=== PATIENT | female | born 1960 | race Caucasian/White ===

== ENCOUNTER → 2023-06-17 13:56 | Outpatient (REF) | payer MEDICARE, OTHER, SELFPAY | LOC: HWRAD 13:56 | PROVIDERS: ATTENDING PHYSICIAN Family Medicine Sports Medicine | DX: K57.92 Diverticulitis of intestine, part unspecified, without perforation or abscess without bleeding (principal) | CPT/HCPCS: 74177; Q9967 ==

== ENCOUNTER → 2024-03-24 07:13 | Outpatient (REF) | payer MEDICARE, OTHER, SELFPAY ==
[2024-03-24] MEDS: LEXISCAN 0.4 MG IV ×2 (09:21)
[2024-03-24] MEDS: FLUSH (NSS) 1 FLUSH IV ×2 (09:22)
== END ==
LOC: RCS 07:13
PROVIDERS: ATTENDING PHYSICIAN Family Medicine Sports Medicine
DX: R07.9 Chest pain, unspecified (principal)
CPT/HCPCS: 78452; 93017; A9500; J2785

== ENCOUNTER 2024-07-29 20:11 | Inpatient (IN) | payer MEDICARE, OTHER, SELFPAY ==
[2024-07-29 15:07] VITALS: BP 174/89
[2024-07-29 15:48] LABS: COVID-19 Antigen Negative (Negative)
[2024-07-29 15:52] LABS: % Basophils 0.6 % (0-2); % Eosinophils 1.1 % (0-6); % Immature Granulocytes 0.3 % (0-0.5); % Lymphocytes 13.5 % (20.5-51.1); % Monocytes 6.6 % (1.7-9.3); % Neutrophils 77.9 % (42.2-75.2); Absolute Basophils 0.1 10^3/uL (0-0.2); Absolute Eosinophils 0.1 10^3/uL (0-0.7); Absolute Lymphocytes 1.5 10^3/uL (1.2-3.4); Absolute Monocytes 0.7 10^3/uL (0.1-0.6); Absolute Neutrophils 8.5 10^3/uL (1.4-6.5); Hematocrit 35.1 % (37.0-47.0); Hemoglobin 11.1 g/dL (12.0-16.0); Mean Corp Hgb Conc. 31.6 g/dL (33.0-37.0); Mean Corpuscular Hgb 26.6 pg (27.0-31.0); Mean Corpuscular Volume 84.2 fL (81.0-99.0); Mean Platelet Volume 10.5 fL (7.4-10.4); Nucleated Red Blood Cells % 0 %; Platelet Count 202 10^3/uL (130-400); Red Blood Cell Count 4.17 10^6/uL (4.20-5.40); Red Cell Dist. Width 15.9 % (11.5-14.5); White Blood Cell Count 10.9 10^3/uL (4.8-10.8)
[2024-07-29 15:53] LABS: NT-proBNP 1930 pg/ml
[2024-07-29 15:58] LABS: ALT (SGPT) 24 U/L (0-35); AST (SGOT) 37 U/L (14-36); Albumin 4.1 g/dl (3.5-5.0); Alkaline Phosphatase 83 U/L (38-126); Blood Urea Nitrogen 11 mg/dl (7-17); Calcium 9.2 mg/dl (8.4-10.2); Carbon Dioxide 22 mmol/L (22-30); Chloride 111 mmol/L (98-107); Glucose 155 mg/dl (70-99); Potassium 4.2 mmol/L (3.5-5.1); Sodium 143 mmol/L (135-145); Total Bilirubin 0.8 mg/dl (0.2-1.3); Total Protein 6.4 g/dl (6.3-8.2); eGFR > 60.00
[2024-07-29 16:00] VITALS: BP 139/111
[2024-07-29 16:12] VITALS: BMI 32.5
--- NOTE | 2024-07-29 16:17 | ED.GENMED ---
History of Present Illness
General
Chief Complaint: Breathing Problem
Source: patient
Exam Limitations: none
Time Seen by Provider: 07/29/24 16:08
Nursing documentation reviewed up to this point in time: agreed with
History of Present Illness
History of Present Illness:
Patient is a 64-year-old female with past medical history of COPD, lupus scleroderma Sjogren's presents to the ER for evaluation. Patient reports she has been short of breath for at least the past month. She was followed by her family doctor for
this and July 02 she completed antibiotics, Cipro and steroids. She reports she really never improved however recently got worse. She reports last night she was up all night till 3:30 in the morning with shortness of breath. She tried to use
family members nebulizer which did seem to improve her symptoms. She does report that when she saw her family doctor recently for this he did want a CAT scan she never had that done yet.
She has had some runny nose denies any fevers.
Past History
Past History
ED Past Medical History: GERD, Hypothyroidism, Psychiatric (Anxiety), Other (Rheumatoid arthritis, Sj�gren syndrome, lupus) and Other (Irritable bowel syndrome, diverticulosis, neuropathy); Negative CAD
ED Past Surgical History: Tonsilectomy
Social History
Tobacco: Smoker
Personal:
Living: with family
Employment: Employed
Family History
Family History: Hypertension; Negative Early CAD
Review of Systems
Review of Systems
Allergies reviewed?: Yes
All Other Systems: ROS reviewed and negative except as documented in HPI and ROS
Constitutional: Denies fever
EENT: Reports runny nose
Respiratory: Reports cough (mild cough ) and trouble breathing
Cardiac: Reports no symptoms
ABD/GI: Reports no symptoms
Musculoskeletal: Reports no symptoms
Skin: Reports no symptoms
Neurological: Reports no symptoms
Psychiatric: Reports no symptoms
Phy Exam
General Physical Exam
General Presentation: no apparent distress
General age: appears stated age
General Skin: warm and dry
General Habitus: normal
General Mental: alert
General Hydration: appears well hydrated
Cardiovascular Exam
Cardiovascular Exam: regular rate/rhythm, no murmur and normal peripheral pulses
Pulmonary Exam
Pulmonary Exam: other (+ crackles b/l bases )
Neurological Exam
Neurological Exam: alert and oriented x3
Musculoskeletal Exam
Musculoskeletal Exam: full ROM
Skin Exam
Skin Exam: normal color and warm/dry
Psychiatric Exam
Psychiatric Exam: normal mood/affect
Scores
Heart Failure Risk
Heart Failure Risk Score: Not Applicable
Course
Orders/Labs/Results
Orders:
Orders
07/29/24 15:12
ECG [Electrocardiogram (*1)] Urgent
Reason for Study: Shortness of Breath
EKG- Treatment ONCE
07/29/24 15:22
BNP [NT-proBNP] Urgent
COVID-19 Antigen Urgent
Source: Nasal Swab
Complete Blood Count/With Diff Urgent
Comprehensive Metabolic Panel Urgent
07/29/24 15:23
Influenza A+B Rapid Molecular Urgent
ANUSHA Source: Nasal Swab
Specimen Description:
07/29/24 16:29
CT Chest PE Study Urgent
Comment:
Reason For Exam: SOB
07/29/24 16:31
Dexamethasone Sod Phosphate [Decadron] 10 mg IV NOW STA
Ipratropium/Albuterol Sulfate [Duoneb] 3 ml INH R NOW STA
07/29/24 19:03
CefTRIAXone [Rocephin] 1,000 mg IV NOW STA
Doxycycline Hyclate [Vibramycin] 100 mg 0.9% Sodium Chloride 250 ml [Nss] 250 ml IV NOW
Abnormal Lab Results
07/29/24
15:22
WBC 10.9 H 10^3/uL
(4.8-10.8)
RBC 4.17 L 10^6/uL
(4.20-5.40)
Hgb 11.1 L g/dL
(12.0-16.0)
Hct 35.1 L %
(37.0-47.0)
MCH 26.6 L pg
(27.0-31.0)
MCHC 31.6 L g/dL
(33.0-37.0)
RDW 15.9 H %
(11.5-14.5)
MPV 10.5 H fL
(7.4-10.4)
Absolute Neuts (auto) 8.5 H 10^3/uL
(1.4-6.5)
Absolute Monos (auto) 0.7 H 10^3/uL
(0.1-0.6)
Neutrophils % 77.9 H %
(42.2-75.2)
Lymphocytes % 13.5 L %
(20.5-51.1)
Chloride 111 H mmol/L
(98-107)
Glucose 155 H mg/dl
(70-99)
AST 37 H U/L
(14-36)
07/29/24 15:22
07/29/24 15:22
Vital Signs
Initial and Last Documented VS:
Initial Vital Signs
Temp Pulse Resp BP Pulse Ox
98.1 F 83 20 174/89 98
07/29/24 15:07 07/29/24 15:07 07/29/24 15:07 07/29/24 15:07 07/29/24 15:07
Last Documented Vital Signs
Temp Pulse Resp BP Pulse Ox
98.1 F 84 21 135/92 93
07/29/24 15:07 07/29/24 18:48 07/29/24 18:48 07/29/24 18:47 07/29/24 18:48
Gym Instructor consulted with Physician
Gym Instructor consulted with physician?: Yes
Name of Physician Consulted: [email or web address]
MDM/Problems Addressed
Differential Diagnosis Includes:
Not limited to COPD exacerbation, pneumonia, less likely COVID or influenza
MDM/Problems Addressed:
Patient is a 64-year-old female past medical history of COPD presents for worsening shortness of breath. Patient denies any recent fever chills has a mild runny nose very minimal cough. Patient presents with crackles to bilateral bases hypoxic
with ambulation patient does dip down to 88% with ambulation this was after patient was given a neb and steroids. Patient had seen her family doctor for further evaluation of her shortness of breath however has never seen pulmonology. She was
ordered a CAT scan but that was never done CAT scan was done here in the ER which is negative for PE does show extensive groundglass opacities likely representing atelectasis or multifocal pneumonia. Patient is afebrile white count minimally
elevated at 10.9, normal electrolytes negative COVID-negative flu. Patient BNP elevated however patient with no history of heart failure no lower extremity swelling on exam. Will plan for admission for hypoxia and will treat for pneumonia.
Chronic conditions affecting care:
copd
*Pulse Oximetry
Patient hypoxic: no
*EKG
Interpreted by ED Provider?: Yes
Heart Rate: 82
Rate: normal
Rhythm: sinus
*Critical Care Note
Total Time (30-74mins, 75-104mins- exclusive of procedures): Not Applicable
ED Attending Note
-
Portions of this chart may have been created with voice recognition software.� Occasional wrong word or��sound alike� substitutions may have occurred due to the inherent limitations of voice recognition software.
Discharge Plan
Departure
Patient Disposition: Admit
Date of Disposition: 07/29/24
Time of Disposition: 19:07
Admit to: Med/Surg
Admit to doctor: hospitalist
Presentation/result/management discussed w/ accepting MD/DO: Hospitalist
Patient with high blood pressure during this ER visit?: Yes
Condition: Fair
Covid-19: Not Applicable
Discharge Problem:
copd exacerbation, Pneumonia
Prescriptions:
No Action
levothyroxine 100 MCG tablet
100 mcg PO DAILY Qty: 30 0RF
Referrals:
Jeferson Torres DO [Family Provider] -
Interventions
Interventions:
*General Assessment Last Done: 07/29/24 15:07
ED- Cardiac Assessment Last Done: 07/29/24 16:13
ED- Pulmonary Assessment Last Done: 07/29/24 16:13
Discharge Date and Time
Print Language: TURKMEN
[2024-07-29 17:00] VITALS: BP 152/71
[2024-07-29] MEDS: DUONEB 3 ML INH (17:23)
[2024-07-29] MEDS: DECADRON 10 MG IV (17:23)
[2024-07-29 18:47] VITALS: BP 135/92
--- NOTE | 2024-07-29 19:49 | W.PN.UPDATE ---
Update Note
Progress Note Update
This note serves as an addendum to the H&P by cost report clerk HEIDI Soumya ROSALES
HPI
64F Former smoker HX COPD, HX lupus scleroderma Sjogren's, not on home O2 seen at ER
- reports short of breath
- seen by PCP completed ABx Cipro and steroids
- Never really improved recently got worse.
- last night she was up all night till 3:30 in the morning with shortness of breath.
- use family members nebulizer which did seem to improve her symptoms.
Vital Signs
Temp Pulse Resp BP Pulse Ox
98.1 F 84 21 135/92 93
07/29/24 15:07 07/29/24 18:48 07/29/24 18:48 07/29/24 18:47 07/29/24 18:48
Labs
PE
Gen: not toxic , NAD
HEENT: anicteric
Neck: supple
Lungs:+ crackles b/l bases )
Cor: RRR S1 S2
Abdomen: soft abdomen
MANUFACTURING ENGINEER PAINT: AAO3 NFND
MS: no edema
Psych: nl mood and affect
07/29/24
15:22
WBC 10.9 H
Hgb 11.1 L
Plt Count 202
Creatinine 0.8
eGFR > 60.00
Pcm-M-Cfbeorpkwbi Pept 1930
Chest PE Study
1. No evidence of central, lobar or segmental pulmonary embolism.
2. There is extensive groundglass opacities with consolidative opacities in the posterior right upper lobe and bilateral lower lobes. Findings may represent edema/atelectasis or multifocal pneumonia.
3. 1.7 cm right hilar lymph node which may be reactive. Consider follow-up to ensure resolution.
ASSESSMENT & PLAN
Dyspnea but no signifcant hypoxia nor O2 need
Abn CTC for extensive groundglass opacities with consolidative opacities and NEG for PE
DDX: Pul edema/atelectasis vs multifocal PNA - NI infection vs Cryptogenic organizing PNA ??
- check PCT
- ECHO in AM
- Trial of IV Lasix 40mg single dose
- Empiric Duo Nebs qid and PRN
- Hold of IV Decadron
- Hold off ABx for now
- PRN O2 if POx > 93 %
- Pul consult
Essential HTN
- c/w WEB SITE ADMIN Nebivolol, Valsartan
HX lupus scleroderma Sjogren's
-,c/w Hydroxychloroquine and Folic acid
HLD
- WEB SITE ADMIN Rosuvastatin
- on ASA
Depression
- Sertraline
DVT Px: LMWH
Full code
IP TLM
--- NOTE | 2024-07-29 19:56 | HPS.HSE ---
Family Physician
-
Family Physician: Jeferson Torres
Chief Complaint
-
Shortness of Breath
History of Present Illness
Patient is a 64 y/o female past medical history of multiple rheumatologic conditions, hypertension, hyperlipidemia and COPD who presents with increased shortness of breath. Patient reports she has been short of breath with activity for an extended
period of time. She notes worsening symptoms over the past month but today had a very severe episode of shortness of breath after walking up the stairs which prompted her to come to the emergency department for evaluation. She reports mild cough
which she describes more as a post-nasal drip than from her lungs. She reports chest tightness across the chest, and back along the bra line. She reports occasionally swelling of her hands and ankles. She denies fevers, sweats or chills.
Medical History
Past Medical History
Past Medical History: Reports Other
Additional Past Medical History:
Lupus
Scleroderma
Sjogren Syndrome
Arthritis
GERD / PUD
Essential Hypertension
Hyperlipidemia
Hypothyroidism
Overactive Bladder
Past Surgical History: Reports Other
Additional Past Surgical History:
Benign Parotid Tumor
Cervical Fusion
Social History
Tobacco: Former Smoker (Quit a little over 15 years ago)
Alcohol: Occasional
Family History
Family History: Not pertinent
Allergies / Home Medications
Allergies reflects when Allergies were last updated in [facility].
Home Medications with original date entered in [facility]
Allergy/Medication List:
Allergies
Allergy/AdvReac Type Severity Reaction Status Date / Time
erythromycin base Allergy Intermediate Rash Verified 07/29/24 15:07
[Erythromycin Base]
Home Medications
levothyroxine 100 mcg tablet 100 mcg PO DAILY #30 tabs 02/02/11
acetaminophen 500 mg tablet (Tylenol Extra Strength) 1,000 mg PO BIDPRN PRN mild pain 07/29/24
aspirin 81 mg tablet,delayed release 81 mg PO DAILY 07/29/24
celecoxib 200 mg capsule 200 mg PO BID 07/29/24
chlorzoxazone 500 mg tablet 500 mg PO DAILY 07/29/24
dextromethorphan-guaifenesin 30 mg-600 mg tablet extended [id number] hr (Mucinex DM) 2 tab PO [id number] PRN mucus 07/29/24
folic acid 0.8 mg capsule 0.8 mg PO DAILY 07/29/24
hydroxychloroquine 200 mg tablet 200 mg PO DAILY 07/29/24
loratadine 10 mg tablet 10 mg PO DAILYPRN PRN seasonal allergies 07/29/24
montelukast 10 mg tablet 10 mg PO DAILY 07/29/24
nebivolol 10 mg tablet 10 mg PO DAILY 07/29/24
omeprazole 40 mg capsule,delayed release 40 mg PO DAILY 07/29/24
pseudoephedrine HCl 30 mg tablet (Sudafed) 30 mg PO DAILYPRN PRN mucus 07/29/24
rosuvastatin 5 mg tablet 5 mg PO DAILY 07/29/24
sertraline 100 mg tablet 100 mg PO DAILY 07/29/24
tolterodine 4 mg capsule,extended release 24 hr 4 mg PO DAILY 07/29/24
valsartan 320 mg tablet 160 mg PO DAILY 07/29/24
vitamin B complex 1 tab PO DAILY 07/29/24
Review of Systems
-
A 12 point ROS was completed and negative except as noted: Yes
Constitutional: Denies Fever or Chills
Respiratory: Reports See HPI
Cardiac: Denies Palpitations
Physical Exam
Vital Signs
Vital Signs
Temp Pulse Resp BP Pulse Ox
98.1 F 78 25 135/92 91
07/29/24 15:07 07/29/24 19:45 07/29/24 19:45 07/29/24 18:47 07/29/24 19:45
Physical Exam
General: Comfortable and Conversant
HEENT: Anicteric and Moist mucous membranes
Respiratory: Rales (Fine rales bilaterally) and Non Labored Respirations; No Wheezes
Cardiac: S1/S2 and Regular Rhythm
GI: Soft and Non Tender
Rectal: Deferred by Provider
Musculoskeletal: No Clubbing, No Cyanosis and Other (Slight edema of bilateral hands)
Skin: Warm and Dry
Neuro: Awake, Alert, Oriented and Nonfocal/grossly intact
Psych: Calm
Laboratory Results
-
07/29/24 15:22
07/29/24 15:22
Laboratory Results
Total Bilirubin 0.8 mg/dl (0.2-1.3) 07/29/24 15:22
AST 37 U/L (14-36) H 07/29/24 15:22
ALT 24 U/L (0-35) 07/29/24 15:22
Alkaline Phosphatase 83 U/L (38-126) 07/29/24 15:[address]:
1. No evidence of central, lobar or segmental pulmonary embolism.
2. There is extensive groundglass opacities with consolidative opacities in the posterior right upper lobe and bilateral lower lobes. Findings may represent edema/atelectasis or multifocal pneumonia.
Data Reviewed
-
CT Scan: Report Reviewed by me
Lab Data: Labs Reviewed by me
Impression/Plan
-
Dyspnea on Exertion, differential includes pulmonary fibrosis / interstitial lung disease vs heart failure vs other
-Consult Pulmonary
-Continue DuoNeb QID and PRN
-Patient given Decadron 10mg in ED - will hold on further steroids
-Check Procalcitonin - If negative hold on further antibiotics
-Check Echo
-Give Lasix 40mg IV x One Dose - Monitor for response
Essential Hypertension
-Continue nebivolol and valsartan
Hyperlipidemia
-Continue rosuvastatin
Lupus / Scleroderma / Sjogren / Arthritis
-Continue Celebrex
-Continue hydroxychloroquine
Hypothyroidism
-Continue levothyroxine
GERD
-Continue Protonix
Overactive Bladder
-Continue Detrol
DVT proph: Lovenox
Code Status: Full Code
[2024-07-29] MEDS: ROCEPHIN 1000 MG IV (20:22)
[2024-07-29] MEDS: LASIX 40 MG IV (20:22)
[2024-07-29] MEDS: VIBRAMYCIN 260 MG IV (20:44)
[2024-07-29 21:05] LABS: Procalcitonin 0.11 ng/ml (0.0-0.25)
[2024-07-29 21:58] VITALS: BP 172/94; BMI 32.6
[2024-07-29] MEDS: DIOVAN 160 MG PO (22:38)
[2024-07-29 23:20] VITALS: BP 174/86
[2024-07-29] MEDS: DUONEB INH (23:45)
[2024-07-29] MEDS: PULMICORT INH (23:45)
[2024-07-30 03:08] VITALS: BP 172/93
[2024-07-30] MEDS: SYNTHROID 100 MCG PO (05:03)
[2024-07-30 05:43] VITALS: BMI 31.9
[2024-07-30 06:27] LABS: Hematocrit 36.8 % (37.0-47.0); Hemoglobin 11.8 g/dL (12.0-16.0); Mean Corp Hgb Conc. 32.1 g/dL (33.0-37.0); Mean Corpuscular Hgb 26.8 pg (27.0-31.0); Mean Corpuscular Volume 83.6 fL (81.0-99.0); Mean Platelet Volume 11.3 fL (7.4-10.4); Platelet Count 182 10^3/uL (130-400)
[2024-07-30 06:39] LABS: Blood Urea Nitrogen 16 mg/dl (7-17); Calcium 10.3 mg/dl (8.4-10.2); Carbon Dioxide 24 mmol/L (22-30); Chloride 106 mmol/L (98-107); Estimated Creatinine Clearance 65 ml/min; Glucose 145 mg/dl (70-99); Magnesium 1.9 mg/dl (1.6-2.3); Potassium 4.6 mmol/L (3.5-5.1); Sodium 142 mmol/L (135-145); eGFR > 60.00
--- NOTE | 2024-07-30 06:47 | W.PN.HOSP.TC ---
Today's Communication/Plan
-
see a/p
Assessment / Plan
Assessment / Plan
Physical Exam
General: Comfortable and Conversant
HEENT: Anicteric and Moist mucous membranes
Respiratory: Clear to auscultation b/l, Non Labored Respirations; No Wheezes
Cardiac: S1/S2 and Regular Rhythm
GI: Soft and Non Tender
Musculoskeletal: No Clubbing, No Cyanosis, no edema
Skin: Warm and Dry
Neuro: AOx3 conversant coherent
Psych: Calm
64F Lupus Scleroderma Sjogren HTN HLD COPD p/w exertional dyspnea progressive past few weeks.
Dyspnea on Exertion, differential includes pulmonary fibrosis / interstitial lung disease vs heart failure vs other
-Consult Pulmonary
-Continue DuoNeb QID and PRN
-Patient given Decadron 10mg in ED - holding further steroids at this time
-Procal neg monitor off abx
-ECHO appreciated EF 75% stage II diastolic dysfunction no significant valve abn's
-received Lasix 40mg IV x One Dose - with significant weight loss noted
-BNP 1930
-patient since significantly symptomatically improved.
-Daily Weight I/O
-Home oxygen assessment appreciated no needs
Essential Hypertension
-Continue nebivolol and valsartan
Hyperlipidemia
-Continue rosuvastatin
Lupus / Scleroderma / Sjogren / Arthritis
-Continue Celebrex
-Continue hydroxychloroquine
Hypothyroidism
-Continue levothyroxine
GERD
-Continue Protonix
Overactive Bladder
-Continue Detrol
PT/OT eval pending
DVT proph: Lovenox
Code Status: Full Code
I spent a total of 50 minutes with the patient or on the floor. More than 50% of this time involved counseling and coordination of care.
Anticipated Discharge: 24 - 48 hours
Subjective/Interval History
-
Date of Service: July 30, 2024
No acute distress appears comfortable. Reports significant improvement in symptoms. Stable respiratory status on room air.
Objective Data
-
Labs:
Laboratory Results
07/30/24
05:24
WBC 9.0
Hgb 11.8 L
Hct 36.8 L
Plt Count 182
Sodium 142
Potassium 4.6
Chloride 106
Carbon Dioxide 24
BUN 16
Creatinine 0.8
Glucose 145 H
Calcium 10.3 H
Vital Signs:
Vital Signs
Temp Pulse Resp BP Pulse Ox
98.2 F 74 16 172/93 94
07/30/24 03:08 07/30/24 03:08 07/30/24 03:08 07/30/24 03:08 07/30/24 03:08
[2024-07-30] MEDS: DUONEB 3 ML INH ×4 (07:16→19:21)
[2024-07-30] MEDS: PULMICORT 0.5 MG INH ×2 (07:17→19:21)
[2024-07-30 07:25] VITALS: BP 161/79
[2024-07-30] MEDS: PROTONIX 40 MG PO (08:31)
[2024-07-30] MEDS: DETROL LA 4 MG PO (08:31)
[2024-07-30] MEDS: BYSTOLIC 10 MG PO (08:31)
[2024-07-30] MEDS: DIOVAN 160 MG PO (08:31)
[2024-07-30] MEDS: FOLVITE 0.8 MG PO (08:31)
[2024-07-30] MEDS: SINGULAIR 10 MG PO (08:31)
[2024-07-30] MEDS: CELEBREX 200 MG PO ×2 (08:31→19:35)
[2024-07-30] MEDS: CRESTOR 5 MG PO (08:31)
[2024-07-30] MEDS: PLAQUENIL 200 MG PO (08:31)
[2024-07-30] MEDS: ASPIR LOW (ENTERIC COATED) 81 MG PO (08:32)
[2024-07-30] MEDS: ZOLOFT 100 MG PO (08:32)
[2024-07-30 11:17] VITALS: BP 167/87
--- NOTE | 2024-07-30 11:25 | CON.PUL ---
Consultation
Consultation Request
Date/Time Consultation Requested: 07/30
Date/Time Consultation Performed: 07/30
Reason for Consultation: Shortness of breath
Medical History
-
History of Present Illness:
64-year-old female with history of asthma, COPD, scleroderma/Sjogren's with acute on chronic shortness of breath. Patient states she has been short of breath for years but more short of breath over the last 2 months. She was given course of
antibiotics and steroids about 1 month ago, without significant improvement. Her has been trying to get her to be evaluated in the hospital. She finally decided to present to the ER where upon arrival, afebrile, pulse 83, breathing at 20,
pressure 174/89, 98%. She was noted to have 88% saturation with activity, also noted to have crackles at the base in the ED. Viral studies negative, elevated proBNP noted. Patient was admitted for possible pneumonia. We are asked to comment on
her pulmonary process
Presently she states she is feeling much improved. She is presently on room air. At baseline she is able to ambulate but does not do any regular exercise. She denies any falls, syncope, lightheadedness, hemoptysis, dysphagia, choking, nausea.
There is a history of snoring and at 1 point she was told to get tested for sleep apnea but never did
.
PMH: Asthma/COPD, history of lupus/scleroderma/Sjogren's, details unclear. History of GERD/peptic ulcer disease, hypertension, hyperlipidemia, hypothyroidism. History of parotid tumor removal cervical fusion surgery.
Past Medical History
Past Medical History: None (See above)
Past Surgical History: None (See above)
Social History
Tobacco: Former Smoker (Overall, 15+ pack year history of tobacco use, 10-yr use of electronic cigarette, recently quit)
Alcohol: Occasional
Drug: None
Personal:
Living: With Family
Employment: Retired (Retired nurse)
Family History
Family History: Other (Family history negative for blood clots, lung cancer, lung disease.)
Allergies / Home Medications
Allergies
Allergy/AdvReac Type Severity Reaction Status Date / Time
erythromycin base Allergy Intermediate Rash Verified 07/29/24 15:07
[Erythromycin Base]
Home Medications
�Medication �Instructions �Recorded �Confirmed �Last Taken �Type
levothyroxine 100 mcg tablet 100 mcg PO DAILY #30 tabs 02/02/11 07/29/24 Unknown Rx
acetaminophen 500 mg tablet 1,000 mg PO BIDPRN PRN mild pain 07/29/24 07/29/24 Unknown History
(Tylenol Extra Strength)
aspirin 81 mg tablet,delayed 81 mg PO DAILY Blood Clot 07/29/24 07/29/24 Unknown History
release Prevention/Tx
celecoxib 200 mg capsule 200 mg PO BID 07/29/24 07/29/24 Unknown History
chlorzoxazone 500 mg tablet 500 mg PO DAILY 07/29/24 07/29/24 Unknown History
dextromethorphan-guaifenesin 30 2 tab PO [id number] PRN mucus 07/29/24 07/29/24 Unknown History
mg-600 mg tablet extended
[id number] hr (Mucinex DM)
folic acid 0.8 mg capsule 0.8 mg PO DAILY Supplement 07/29/24 07/29/24 Unknown History
hydroxychloroquine 200 mg tablet 200 mg PO DAILY LUPUS 07/29/24 07/29/24 Unknown History
loratadine 10 mg tablet 10 mg PO DAILYPRN PRN seasonal 07/29/24 07/29/24 Unknown History
allergies
montelukast 10 mg tablet 10 mg PO DAILY Allergies 07/29/24 07/29/24 Unknown History
nebivolol 10 mg tablet 10 mg PO DAILY Blood Pressure 07/29/24 07/29/24 Unknown History
omeprazole 40 mg capsule,delayed 40 mg PO DAILY Gastrointestinal 07/29/24 07/29/24 Unknown History
release Issue
pseudoephedrine HCl 30 mg tablet 30 mg PO DAILYPRN PRN mucus 07/29/24 07/29/24 Unknown History
(Sudafed)
rosuvastatin 5 mg tablet 5 mg PO DAILY High Cholesterol 07/29/24 07/29/24 Unknown History
sertraline 100 mg tablet 100 mg PO DAILY 07/29/24 07/29/24 Unknown History
tolterodine 4 mg capsule,extended 4 mg PO DAILY BLADDER 07/29/24 07/29/24 Unknown History
release 24 hr
valsartan 320 mg tablet 160 mg PO DAILY 07/29/24 07/29/24 Unknown History
vitamin B complex 1 tab PO DAILY Supplement 07/29/24 07/29/24 Unknown History
Review of Systems
-
All other systems: Negative unless noted
Vitals / Labs / Diagnostic Testing
Vital Signs
Temp Pulse Resp BP Pulse Ox
98.1 F 76 18 167/87 100
07/30/24 11:17 07/30/24 11:17 07/30/24 11:17 07/30/24 11:17 07/30/24 11:17
Lab Data
07/30/24 05:24
07/30/24 05:24
Microbiology
07/29/24 15:23 Nasal Swab Influenza Types A & B (AMANDA) - Final
Negative for Influenza A & B, NAAT
Negative results must be combined with clinical observations
and patient history.
Nucleic Acid Amplification test (NAAT)performed on the
[employer] platform.
Diagnostic Testing:
Physical Exam
-
HEENT: Normocephalic
Cardiovascular: S1/S2, Regular Rhythm, Murmur (n), Rub (n) and Peripheral Edema (n)
Respiratory: Wheeze (n), Rales (n), Rhonchi (n) and Non-Labored Respirations
GI: Soft, Non Distended (Obese) and Non Tender
Neurology: Awake, Alert and No Motor Deficits (Able to sit up without assistance)
Skin: Other (No clubbing, no cyanosis)
General: Comfortable
Assessment
-
64-year-old female with 15+ pack year history of smoking, electronic cigarette use recently discontinued, 2 months of shortness of breath and cough, worsened over the past 2 weeks found to have bilateral interstitial changes on imaging. We are
asked to comment on her pulmonary process
Acute respiratory insufficiency
Progressive times few weeks
Crackles on exam
Bilateral interstitial changes, diffuse groundglass abnormality
Small pleural effusions
Mild subpleural interstitial changes per abdominal imaging 2023, my review
Abnormal EKG
Indeterminant stress test March 2024
Mild hypercalcemia
Hyperglycemia
Conditions present prior to admission
hypothyroidism
History of lupus/scleroderma/Sjogren's
On hydroxychloroquine
Details unclear
Suspected sleep apnea
15+ pack-year history of smoking, discontinued
Plan/recommendations
At this time, patient states she feels much improved
Influenza study negative
Bilateral groundglass abnormalities, diffuse
Patient denies any occupational or environmental exposures, states she is quit smoking and electronic cigarette use many years ago
Describes symptoms over the last 2 months
Denies any recent history of Covid but denies any frequent testing
She received 1 dose of IV Decadron in the ER, and antibiotics at that time
Moving forward
Given chronicity of symptoms, doubt acute infectious process
Agree with holding antibiotics for now
Patient states she subjectively is improved since admission
Has only received steroids and 1 dose of antibiotics
Check bedside spirometry
Check ambulatory saturation, confirm absence of hypoxia
Given abnormal EKG, may require outpatient cardiology evaluation especially history of autoimmune disease
Recent stress test March 2024 indeterminant
Also reviewed my suspicion for sleep disordered breathing
Would recommend outpatient pulmonary follow-up
We will follow
[2024-07-30] MEDS: NON-FORMULARY ITEM 500 MG PO (14:15)
[2024-07-30 15:04] VITALS: BP 155/82
[2024-07-30] MEDS: MUCINEX 600 MG PO (15:36)
--- NOTE | 2024-07-30 16:16 | CM ---
Alert awake oriented patient lives with her Rafi who lives in a 2 story home with 5 steps to enter and 13 to bed bathroom. She is independent in driving and in all activities of daily living.She uses a cane and walker. Offered VN she
declined.
had [facility] VN hx /No SNF hx
Pharmacy [facility]
PCP Dr Torres
PLAN Home no needs
[2024-07-30 19:23] VITALS: BP 173/86
[2024-07-30] MEDS: ROBITUSSIN 200 MG PO (23:12)
[2024-07-30 23:17] VITALS: BP 135/66
[2024-07-31 03:48] VITALS: BP 110/66
[2024-07-31] MEDS: SYNTHROID 100 MCG PO (05:27)
[2024-07-31] MEDS: TYLENOL 650 MG PO (05:39)
[2024-07-31 06:00] VITALS: BMI 32.0
[2024-07-31 06:47] LABS: Blood Urea Nitrogen 25 mg/dl (7-17); Calcium 10.3 mg/dl (8.4-10.2); Carbon Dioxide 24 mmol/L (22-30); Chloride 107 mmol/L (98-107); Estimated Creatinine Clearance 58 ml/min; Glucose 105 mg/dl (70-99); Magnesium 1.9 mg/dl (1.6-2.3); Phosphorus 4.8 mg/dl (2.5-4.5); Potassium 4.4 mmol/L (3.5-5.1); Sodium 142 mmol/L (135-145); eGFR > 60.00
[2024-07-31] MEDS: PULMICORT 0.5 MG INH (07:23)
[2024-07-31] MEDS: DUONEB 3 ML INH ×2 (07:23→11:02)
--- NOTE | 2024-07-31 07:31 | W.PN.HOSP.TC ---
Today's Communication/Plan
-
discharge
Assessment / Plan
Assessment / Plan
Physical Exam
General: Comfortable and Conversant
HEENT: Anicteric and Moist mucous membranes
Respiratory: Clear to auscultation b/l, Non Labored Respirations; No Wheezes
Cardiac: S1/S2 and Regular Rhythm
GI: Soft and Non Tender
Musculoskeletal: No Clubbing, No Cyanosis, no edema
Skin: Warm and Dry
Neuro: AOx3 conversant coherent
Psych: Calm
64F Lupus Scleroderma Sjogren HTN HLD COPD p/w exertional dyspnea progressive past few weeks.
Dyspnea on Exertion, differential includes pulmonary fibrosis / interstitial lung disease vs heart failure vs other
-Consult Pulmonary appreciated outpatient follow up recommended
-treated empirically with DuoNeb QID, PRN also available but did not require
-Patient given Decadron 10mg in ED - held further steroids, remained stable off
-Procal neg, no need for further abx
-ECHO appreciated EF 75% stage II diastolic dysfunction no significant valve abn's
-received Lasix 40mg IV x One Dose - with significant weight loss noted approx 8 lbs
-BNP 1930
-patient significantly symptomatically improved following admission
-Daily Weight I/O
-Home oxygen assessment appreciated no needs
-Cardio eval appreciated outpatient follow up recommended
Essential Hypertension
-Continue nebivolol and valsartan
-HCTZ added as per Cardio
Hyperlipidemia
-Continue rosuvastatin
Lupus / Scleroderma / Sjogren / Arthritis
-Continue Celebrex
-Continue hydroxychloroquine
Hypothyroidism
-Continue levothyroxine
GERD
-Continue Protonix
Overactive Bladder
-Continue Detrol
PT/OT eval pending
DVT proph: Lovenox
Code Status: Full Code
Medically stable for discharge home with outpatient follow up recommendations.
Total Time Preparing Discharge ___40____ minutes including examination of the patient, summary of the hospital stay, instructions for continuing care to all relevant caregivers; and preparation of discharge records, prescriptions, and referral
forms if necessary.
Anticipated Discharge: Today
Subjective/Interval History
-
Date of Service: July 31, 2024
Seen and examined at bedside in no acute distress resting comfortably in bed. Denies new acute issues at this time. Overall reports feeling well. Eager to go home. Rafi present during evaluation.
Objective Data
-
Labs:
Laboratory Results
07/31/24
05:55
Sodium 142
Potassium 4.4
Chloride 107
Carbon Dioxide 24
BUN 25 H
Creatinine 0.9
Glucose 105 H
Calcium 10.3 H
Vital Signs:
Vital Signs
Temp Pulse Resp BP Pulse Ox
98.0 F 76 18 110/66 95
07/31/24 03:48 07/31/24 07:26 07/31/24 07:26 07/31/24 03:48 07/31/24 07:26
I&O
07/30/24 07/31/24 08/01/24
06:59 06:59 06:59
Intake Total 960 / 960
Balance 960 / 960
[2024-07-31 07:58] VITALS: BP 144/76
[2024-07-31] MEDS: ZOLOFT 100 MG PO (08:41)
[2024-07-31] MEDS: SINGULAIR 10 MG PO (08:41)
[2024-07-31] MEDS: BYSTOLIC 10 MG PO (08:41)
[2024-07-31] MEDS: DETROL LA 4 MG PO (08:42)
[2024-07-31] MEDS: DIOVAN 160 MG PO (08:42)
[2024-07-31] MEDS: CELEBREX 200 MG PO (08:42)
[2024-07-31] MEDS: MUCINEX 600 MG PO (08:42)
[2024-07-31] MEDS: ASPIR LOW (ENTERIC COATED) 81 MG PO (08:42)
[2024-07-31] MEDS: PROTONIX 40 MG PO (08:42)
[2024-07-31] MEDS: PLAQUENIL 200 MG PO (08:42)
[2024-07-31] MEDS: FOLVITE 0.8 MG PO (08:42)
[2024-07-31] MEDS: CRESTOR 5 MG PO (08:42)
[2024-07-31] MEDS: NON-FORMULARY ITEM 500 MG PO (08:46)
[2024-07-31] MEDS: ROBITUSSIN 200 MG PO (08:46)
[2024-07-31 11:30] VITALS: O2SAT 95
[2024-07-31 11:32] VITALS: BP 160/75
--- NOTE | 2024-07-31 11:41 | CON.CAR ---
Addendum entered and electronically signed by Zach Quiroga DO 07/31/24 14:13:
I saw and examined the patient.
The Tool Design Checker's note was reviewed and I agree with the note.
Comment:
Patient resting comfortably in bed. Patient reporting feeling overall better following administration of Lasix, steroids, nebs. Patient reported her most recent complaint of worsening shortness of breath which had been ongoing over the past few
months however more recently became more significant. Recent echocardiogram showed normal heart function (LVEF greater than 75%) without significant valvular disease. I discussed with patient, she reports resolution of shortness of breath at this
current juncture. Patient's ongoing workup with primary service, rheumatology, and pulmonology.
GENERAL: no acute distress
EYE: sclera anicteric
NECK: Supple, no JVD, no carotid bruit appreciated
ENT: normal nose, moist mucosal membranes
CARDIAC: Regular rate and rhythm, +S1/S2, no murmur, rubs, or gallops
CHEST/PULMONARY: Normal effort, clear breath sounds
ABDOMEN: Soft, without focal tenderness or distention
NEUROLOGICAL: Alert and oriented x3
SKIN: Warm and dry, no rash
PSYCH: Normal and appropriate interaction.
Telemetry shows sinus rhythm; brief PAT; PVCs
A/P as below
Patient meeting hypertensive by vital signs had responded well to diuretic therapy. With this in mind, we will start patient hydrochlorothiazide for BP control and mild diuresis.
Patient to continue on valsartan, Bystolic, aspirin, rosuvastatin
Patient to have BMP in 1 week and follow-up in our office as scheduled
No further recommendations from cardiovascular standpoint at this time, will sign off. Please call with questions. Thank you.
Original Note:
Consultation
Consultation Request
Date/Time Consultation Requested: 07/31/2024
Date/Time Consultation Performed: 07/31/2024
Requesting Provider: Dr. Strong
Performing Provider: Eufemia Maddox PA-C for Dr. Quiroga
Reason for Consultation: JACOBO, possible CHF
Medical History
-
History of Present Illness:
HPI: Aparna is a 64 year old female with PMH of lupus, scleroderma, Sjogren syndrome, GERD, hypothyroidism, HTN, and HLD who presented to the ER with worsening SOB. She states over the past 2 months she has had progressively worsening shortness of
breath, weight gain, and fatigue. Symptoms acutely worsened on 07/29/2024 with walking up steps, she noted feeling significant shortness of breath which was unusual for her, so she came to ER for evaluation. In ER, CTA chest showed no evidence of
PE, but there were extensive groundglass opacities noted. proBNP mildly elevated at 1930. She was admitted for further workup and evaluation. She received 1 dose of IV Lasix and weight came down 8 pounds. She was also given IV steroids and neb
treatments. She is symptomatically improved and reports she has not felt this well in a year. She has no shortness of breath and feels breathing is back to baseline. She has been working with PT and has been walking around the unit without any
dyspnea on exertion. No edema. She had echocardiogram which showed EF >75% with no significant valvular disease. Cardiology consulted for evaluation given suspected new heart failure.
PMH:
Lupus
Scleroderma
Sjogren syndrome
HTN
HLD
GERD
Hypothyroidism
Past Medical History
Past Medical History: Other (In HPI)
Social History
Tobacco: Former Smoker
Alcohol: Occasional
Personal:
Living: With Family
Family History
Family History: CAD
Allergies / Home Medications
Allergy/AdvReac Type Severity Reaction Status Date / Time
erythromycin base Allergy Intermediate Rash Verified 07/29/24 15:07
[Erythromycin Base]
�Medication �Instructions �Recorded �Confirmed �Type
levothyroxine 100 mcg tablet 100 mcg PO DAILY #30 tabs 02/02/11 07/29/24 Rx
acetaminophen 500 mg tablet 1,000 mg PO BIDPRN PRN mild pain 07/29/24 07/29/24 History
(Tylenol Extra Strength)
aspirin 81 mg tablet,delayed 81 mg PO DAILY Blood Clot 07/29/24 07/29/24 History
release Prevention/Tx
celecoxib 200 mg capsule 200 mg PO BID 07/29/24 07/29/24 History
chlorzoxazone 500 mg tablet 500 mg PO BID PRN muscle 07/29/24 07/30/24 History
pain/stiffness/spasm
dextromethorphan-guaifenesin 30 2 tab PO [id number] PRN mucus 07/29/24 07/29/24 History
mg-600 mg tablet extended
[id number] hr (Mucinex DM)
folic acid 0.8 mg capsule 0.8 mg PO DAILY Supplement 07/29/24 07/29/24 History
hydroxychloroquine 200 mg tablet 200 mg PO DAILY LUPUS 07/29/24 07/29/24 History
loratadine 10 mg tablet 10 mg PO DAILYPRN PRN seasonal 07/29/24 07/29/24 History
allergies
montelukast 10 mg tablet 10 mg PO DAILY Allergies 07/29/24 07/29/24 History
nebivolol 10 mg tablet 10 mg PO DAILY Blood Pressure 07/29/24 07/29/24 History
omeprazole 40 mg capsule,delayed 40 mg PO DAILY Gastrointestinal 07/29/24 07/29/24 History
release Issue
pseudoephedrine HCl 30 mg tablet 30 mg PO DAILYPRN PRN mucus 07/29/24 07/29/24 History
(Sudafed)
rosuvastatin 5 mg tablet 5 mg PO DAILY High Cholesterol 07/29/24 07/29/24 History
sertraline 100 mg tablet 100 mg PO DAILY 07/29/24 07/29/24 History
tolterodine 4 mg capsule,extended 4 mg PO DAILY BLADDER 07/29/24 07/29/24 History
release 24 hr
valsartan 320 mg tablet 160 mg PO DAILY 07/29/24 07/29/24 History
vitamin B complex 1 tab PO DAILY Supplement 07/29/24 07/29/24 History
Review of Systems
-
History Source: Patient
All other systems: Negative unless noted
Physical Exam
Vital Signs
Temp Pulse Resp BP Pulse Ox
98.1 F 75 18 160/75 99
07/31/24 11:32 07/31/24 11:32 07/31/24 11:32 07/31/24 11:32 07/31/24 11:32
Lab Results
07/30/24 05:24
07/31/24 05:55
Ejw-M-Zemjaourely Pept 1930 pg/ml 07/29/24 15:22
Physical Exam
General: Well Developed, Well Nourished and No Apparent Distress
HEENT: Normocephalic, Anicteric and Moist Mucous Membranes
Respiratory: Clear and Non Labored Respirations
Cardiac: S1/S2 and Regular Rhythm
Musculoskeletal: No Clubbing, No Cyanosis and No Edema
Skin: Warm and Dry
Neuro: AO x 3 and Nonfocal/Grossly Intact
Psych: Calm
Impression / Plan
-
PCP: Dr. Torres
Portable Machine Sander: None prior to admission
Impression:
Presented with JACOBO, weight gain
Suspected acute HFpEF
Lupus
Scleroderma
Sjogren syndrome
HTN
HLD
GERD
Hypothyroidism
Echo 07/30/2024: EF >75%, mild concentric LVH, stage II diastolic dysfunction, no significant valvular disease
Plan:
-Presented with JACOBO, weight gain x [address] of chest noted extensive groundglass opacities.
-Given a dose of IV Lasix, IV steroids, and neb treatments with improvement in symptoms.
-Weight down 8 pounds from admission, down to 169 pounds on 07/31. On room air.
-Creatinine stable at 0.9. She was not on diuretic prior to admission. Blood pressures have been elevated slightly, will plan to start HCTZ 12.5 mg daily for additional BP control as well as diuretic effect.
-Continue Bystolic 10 mg daily, valsartan 160 mg daily.
-Check BMP in 1 week as OP.
-Echo 07/30/2024 noted preserved EF as above with no significant valvular disease.
-EKG reviewed, SR with no acute ischemic changes noted.
-Prior stress test 03/2024 with no evidence of ischemia.
-Continue aspirin 81 mg daily and Crestor 5 mg daily.
-Will arrange cardiac follow-up.
HPI: Aparna is a 64 year old female with PMH of lupus, scleroderma, Sjogren syndrome, GERD, hypothyroidism, HTN, and HLD who presented to the ER with worsening SOB. She states over the past 2 months she has had progressively worsening shortness of
breath, weight gain, and fatigue. Symptoms acutely worsened on 07/29/2024 with walking up steps, she noted feeling significant shortness of breath which was unusual for her, so she came to ER for evaluation. In ER, CTA chest showed no evidence of
PE, but there were extensive groundglass opacities noted. proBNP mildly elevated at 1930. She was admitted for further workup and evaluation. She received 1 dose of IV Lasix and weight came down 8 pounds. She was also given IV steroids and neb
treatments. She is symptomatically improved and reports she has not felt this well in a year. She has no shortness of breath and feels breathing is back to baseline. She has been working with PT and has been walking around the unit without any
dyspnea on exertion. No edema. She had echocardiogram which showed EF >75% with no significant valvular disease. Cardiology consulted for evaluation given suspected new heart failure.
Data Reviewed
-
EKG: Tracing Personally Visualized and interpreted
Radiology: Report Reviewed by me
CT Scan: Report Reviewed by me
Medical Tests (Nuc Med, Echo etc): Report Reviewed by me
Labs: Labs Reviewed by me
Old Records: Reviewed
--- NOTE | 2024-07-31 11:45 | PTOTSP ---
Patient receptive and motivated to participate in evaluation for ambulation and elevations.
At this time, demonstrates independence with functional mobility and no further skilled therapy needed at this time. Will be discharged from caseload. If needs change, please re-consult.
[2024-07-31] MEDS: ORETIC 12.5 MG PO (13:43)
--- NOTE | 2024-07-31 14:13 | W.PN.PUL3 ---
Today's Communication / Plan
-
Antihypertensive therapy per cardiology
No evidence of hypoxia with physical therapy
Still with mild crackles at base
Suggestive of mild restriction
Recommend outpatient pulmonary follow-up, full PFT, HST
Information left in chart
Disposition efforts
We will sign off. Please call with questions
Assessment
-
64-year-old female with 15+ pack year history of smoking, electronic cigarette use recently discontinued, 2 months of shortness of breath and cough, worsened over the past 2 weeks found to have bilateral interstitial changes on imaging. We are
asked to comment on her pulmonary process
Acute respiratory insufficiency
Progressive times few weeks
Crackles on exam
Bilateral interstitial changes, diffuse groundglass abnormality
Small pleural effusions
Mild subpleural interstitial changes per abdominal imaging 2023, my review
Abnormal EKG
Indeterminant stress test March 2024
Mild hypercalcemia
Hyperglycemia
Conditions present prior to admission
hypothyroidism
History of lupus/scleroderma/Sjogren's
On hydroxychloroquine
Details unclear
Suspected sleep apnea
15+ pack-year history of smoking, discontinued
Plan/recommendations
At this time, patient states she feels much improved
Influenza study negative
Bilateral groundglass abnormalities, diffuse
Patient denies any occupational or environmental exposures, states she is quit smoking and electronic cigarette use many years ago
Describes symptoms over the last 2 months
Denies any recent history of Covid but denies any frequent testing
She received 1 dose of IV Decadron in the ER, and antibiotics at that time
Moving forward
Remains off antibiotics
Patient states she subjectively is improved since admission
Spirometry suggestive of restriction but otherwise normal
No evidence of amatory desaturation with physical therapy
Echocardiogram is normal, EF 75%. Diastolic dysfunction is suggested
Cardiology evaluation noted
Antihypertensive therapy recommended
She tolerated physical therapy. 90% with activity
Also reviewed my suspicion for sleep disordered breathing
Would recommend outpatient pulmonary follow-up
She will continue her montelukast
Not convinced that she requires maintenance inhaler therapy at this time
Okay for discharge from pulmonary standpoint
Recommend pulmonary follow-up as outpatient. Information left in chart
Reviewed with patient and primary service
Disposition efforts
We will sign off. Please call with questions
Subjective Data
-
Date of Service:
Date of Service: July 31, 2024
Subjective:
Patient is feeling well. She denies any shortness of breath, significant cough, hemoptysis, nausea, abdominal pain. She had some transient right chest discomfort which she attributes it to the ultrasound probe from her echocardiogram. She
otherwise is on room air. She states she tolerated physical therapy without difficulty. She is anxious for discharge
Objective Data
Data Reviewed
Vital Signs / I&O / Oxygen:
Vital Signs
Temp Pulse Resp BP Pulse Ox
98.1 F 75 18 160/75 99
07/31/24 11:32 07/31/24 11:32 07/31/24 11:32 07/31/24 11:32 07/31/24 11:32
Intake and Output
07/30/24 07/31/24 08/01/24
06:59 06:59 06:59
Intake Total 960 / 960
Balance 960 / 960
SaO2 99
Physical Exam
General: Comfortable
HEENT: Normocephalic, Anicteric and Other (Large neck)
Cardiovascular: S1-S2, Regular Rhythm, Murmur (n), Peripheral Edema (n) and Calf Tenderness (n)
Respiratory: Wheeze (n), Crackles (Mild bibasilar), Rhonchi (n), Non-Labored Respirations and Stridor (n)
GI: Soft, Non Distended (Obese) and Non Tender
Neurology: Awake, Alert and No Motor Deficits
Skin: Cyanosis (n), Jaundice (n) and Rash (n)
Labs/Micro/Reports
Lab Data
07/30/24 05:24
07/31/24 05:55
Microbiology
07/29/24 15:23 Nasal Swab Influenza Types A & B (AMANDA) - Final
Negative for Influenza A & B, NAAT
Negative results must be combined with clinical observations
and patient history.
Nucleic Acid Amplification test (NAAT)performed on the
[employer] platform.
--- NOTE | 2024-07-31 15:04 | W.DCSUMMARY ---
Discharge Summary
Discharge Data
Date of Admission: 07/29/24
Date of Discharge: 07/31/24
-
Pending Results: No
Discharge Plan
-
Patient Disposition: Home (Routine Discharge)
Discharge Diagnosis/Procedures: Shortness of breath/Exertional Dyspnea suspected due to Interstitial Lung Disease vs Heart Failure with Preserved Ejection Fraction
Hypertension
Condition: Fair
Diet: 2 Gram Sodium
Activity: As tolerated
Driving Restrictions: As prior to admission
Bathing Restrictions: None
Blood Work: Repeat BMP in 1 week of discharge. Results to be forwarded to primary care provider and [facility]. Script provided to facilitate
Activity Restrictions/Additional Instructions:
Follow up with primary care provider in 1 week of discharge, keep your appointment with Cardiology, and follow up with Pulmonology in 4 weeks of discharge.
Ventolin Inhaler prescribed as needed for shortness of breath/wheezing.
Hydrochlorothiazide has been prescribed for Hypertension and for possible Heart Failure.
Please take medications as prescribed/recommended and follow up with primary care provider and/or other healthcare provider involved in your care for refills and/or further adjustment to your medication regimen as necessary.
Referrals:
Varun Pacheco MD [Active] - (4 weeks PFT and walk test)
Jeferson Torres DO [Family Provider] - in one week
Eufemia Maddox PA-C [Specified Professional Personl] - 08/07/24 9:40 am (You have a follow up with cardiology at the [place] office. Please call with questions. )
Prescriptions:
New
hydrochlorothiazide 12.5 mg Tablet
12.5 mg PO DAILY Qty: 30 0RF
albuterol sulfate [Ventolin HFA] 90 mcg/actuation HFA aerosol inhaler
2 puff inhalation Q6H PRN (Reason: shortness of breath or wheezing) Qty: 8.5 0RF
Continued
levothyroxine 100 MCG tablet
100 mcg PO DAILY Qty: 30 0RF
celecoxib 200 mg Capsule
200 mg PO BID
Patient Comments:
07/29/24: Patient sometimes misses her second dose
chlorzoxazone 500 mg Tablet
500 mg PO BID PRN (Reason: muscle pain/stiffness/spasm)
tolterodine 4 mg Capsule,Extended Release 24hr
4 mg PO DAILY
sertraline 100 mg Tablet
100 mg PO DAILY
omeprazole 40 mg Capsule,Delayed Release(Dr/Ec)
40 mg PO DAILY
aspirin 81 mg Tablet,Delayed Release (Dr/Ec)
81 mg PO DAILY
acetaminophen [Tylenol Extra Strength] 500 mg Tablet
1,000 mg PO BIDPRN PRN (Reason: mild pain)
valsartan 320 mg Tablet
160 mg PO DAILY
vitamin B complex Tablet
1 tab PO DAILY
pseudoephedrine HCl [Sudafed] 30 mg Tablet
30 mg PO DAILYPRN PRN (Reason: mucus)
montelukast 10 mg Tablet
10 mg PO DAILY
Mucinex DM 30-600 mg Tablet Extended Release 12 Hr
2 tab PO [id number] PRN (Reason: mucus)
loratadine 10 mg Tablet
10 mg PO DAILYPRN PRN (Reason: seasonal allergies)
rosuvastatin 5 mg Tablet
5 mg PO DAILY
folic acid 0.8 mg Capsule
0.8 mg PO DAILY
nebivolol 10 mg Tablet
10 mg PO DAILY
hydroxychloroquine 200 mg Tablet
200 mg PO DAILY
Discharge Orders:
Discharge Patient (As Directed); Ordered 07/31/24
Ordered By: Lala Strong
Discharge Date and Time
Print Language: LITHUANIAN
--- NOTE | 2024-07-31 15:11 | CM ---
MD entered order for discharge.
Pt said she was ready for discharge and her Rafi will drive her home.
Offered V she declined need.
PLAN Home no needs
[2024-07-31 15:57] VITALS: BP 116/55
== END 2024-07-31 16:19 | disposition home or self-care (01) | DRG 196 ==
LOC: 4 EAST ACU 20:11
PROVIDERS: Emergency Medicine; Physician Assistant Medical; ADMITTING PHYSICIAN Internal Medicine; ATTENDING PHYSICIAN Internal Medicine; EMERGENCY PHYSICIAN Emergency Medicine; FAMILY PHYSICIAN Family Medicine Sports Medicine; OTHER PHYSICIAN Internal Medicine Cardiovascular Disease; OTHER PHYSICIAN Internal Medicine Critical Care Medicine
DX: J84.9 Interstitial pulmonary disease, unspecified (principal); I50.31 Acute diastolic (congestive) heart failure; I11.0 Hypertensive heart disease with heart failure; Z79.890 Hormone replacement therapy; E78.5 Hyperlipidemia, unspecified; M34.9 Systemic sclerosis, unspecified; M19.90 Unspecified osteoarthritis, unspecified site; E03.9 Hypothyroidism, unspecified; K21.9 Gastro-esophageal reflux disease without esophagitis; N32.81 Overactive bladder; M35.00 Sjogren syndrome, unspecified; Z79.82 Long term (current) use of aspirin; Z79.899 Other long term (current) drug therapy; J44.9 Chronic obstructive pulmonary disease, unspecified; Z87.891 Personal history of nicotine dependence; E83.52 Hypercalcemia; F32.A Depression, unspecified; F41.9 Anxiety disorder, unspecified; I49.3 Ventricular premature depolarization; K58.9 Irritable bowel syndrome, unspecified; M06.9 Rheumatoid arthritis, unspecified; Z87.11 Personal history of peptic ulcer disease; Z11.52 Encounter for screening for COVID-19
CPT/HCPCS: 71046; 71275; 80048; 80053; 83735; 83880; 84100; 84145; 85025; 85027; 87502; 87811; 93005; 93306; 94060; 94640; 96365; 96375; 97116; 97162; 97166; 99285; Q9950; Q9967

== ENCOUNTER → 2024-09-08 15:19 | Outpatient (REF) | payer MEDICARE, SELFPAY | LOC: DHSLP 15:19 | PROVIDERS: ATTENDING PHYSICIAN Internal Medicine Critical Care Medicine | DX: G47.33 Obstructive sleep apnea (adult) (pediatric) (principal) | CPT/HCPCS: 95800 ==

== ENCOUNTER → 2024-09-16 08:56 | Outpatient (REF) | payer MEDICARE, SELFPAY | LOC: RAD 08:56 | PROVIDERS: ATTENDING PHYSICIAN Nurse Practitioner Adult Health; FAMILY PHYSICIAN Family Medicine Sports Medicine | DX: J84.9 Interstitial pulmonary disease, unspecified (principal); R59.0 Localized enlarged lymph nodes | CPT/HCPCS: 71260; Q9967 ==

== ENCOUNTER → 2024-11-19 09:43 | Outpatient (REF) | payer MEDICARE, SELFPAY | LOC: PAVMRI 09:43 | PROVIDERS: ATTENDING PHYSICIAN Family Medicine Sports Medicine | DX: I72.3 Aneurysm of iliac artery (principal); I67.1 Cerebral aneurysm, nonruptured | CPT/HCPCS: 70546; A9575 ==

== ENCOUNTER → 2024-11-20 12:27 | Outpatient (REF) | payer MEDICARE, OTHER, SELFPAY | LOC: PAVMRI 12:27 | PROVIDERS: ATTENDING PHYSICIAN Family Medicine Sports Medicine | DX: M50.30 Other cervical disc degeneration, unspecified cervical region (principal); M51.34 Other intervertebral disc degeneration, thoracic region | CPT/HCPCS: 72141; 72146 ==

== ENCOUNTER 2024-12-09 21:13 | Inpatient (IN) | payer MEDICARE, OTHER, SELFPAY ==
[2024-12-09 14:45] VITALS: BP 154/71
[2024-12-09 16:00] VITALS: BP 104/86
--- NOTE | 2024-12-09 16:05 | ED.GENMED ---
History of Present Illness
General
Chief Complaint: Abdominal Pain
Time Seen by Provider: 12/09/24 15:47
History of Present Illness
History of Present Illness:
64 with history of numerous autoimmune conditions, no pain associated with nausea vomiting diarrhea for the past week, she was started on levofloxacin and metronidazole by her primary provider however symptoms are continually worsening. Diarrhea is
a greenish-black color but she does admit to taking Pepto-Bismol. No fevers or night sweats.
Past History
Past History
ED Past Medical History: GERD, Hypothyroidism, Psychiatric (Anxiety), Other (Rheumatoid arthritis, Sj�gren syndrome, lupus) and Other (Irritable bowel syndrome, diverticulosis, neuropathy); Negative CAD
ED Past Surgical History: Tonsilectomy
Social History
Tobacco: Smoker
Personal:
Living: with family
Employment: Employed
Family History
Family History: Hypertension; Negative Early CAD
Review of Systems
Review of Systems
Allergies reviewed?: Yes
All Other Systems: ROS reviewed and negative except as documented in HPI and ROS
Phy Exam
Physical Exam
Physical Exam:
GEN: Well appearing, NAD, WDWN
HEENT: Oral mucosa moist, no scleral icterus
Cardiac: Regular rate and rhythm, no murmur
Lung: No respiratory distress, no tachypnea
Abdomen: Soft, nontender
MSK: No gross deformity or injuries
Skin: Good color, no pallor or jaundice, no rashes
Neuro: AO x3, moves all extremities freely
Psych: Calm, cooperative
Course
Orders/Labs/Results
Orders:
Orders
12/09/24 Dinner
BRAT
12/09/24 16:09
Complete Blood Count/With Diff Urgent
Comprehensive Metabolic Panel Urgent
Lipase Urgent
12/09/24 16:49
CT Abd/pel Without Iv Or Oral Urgent
Comment:
Reason For Exam: abd pain/ N/V/D
Lactated Ringers [Lr] 1,000 ml IV BOLUS
12/09/24 18:46
US Abdomen Limited Urgent
Comment: RUQ, biliary only
Reason For Exam: abd pain
12/09/24 19:53
Stool Culture Urgent
ANUSHA Source: Feces/Stool
Specimen Description:
12/09/24 20:47
Admit/Transfer Patient As Directed
Co-Sign Provider:
Level of Care: Inpatient admission
Assign to:: Medical/Surgical
Physician / Group: Monty
Diagnosis: JENNIFER, Gastroenteritis
Reason for Hospitalization: JENNIFER, Gastroenteritis
Expected length of stay greater than two midnights?: Yes
ELOS- Estimated Length of Stay in days: 3
I certify the patient meets the requirements for IP care: Yes
12/09/24 20:49
PRN Pain Medication Management As Directed
May give lesser potent ordered pain med per pt: Yes
preference::
Protocol:: Medication orders for pain may be administered in a
manner that supports deferring to patient preference
when the pt is:
- Requesting an ordered lesser potent pain medication.
Least to most potent pain medications are defined
as: acetaminophen < NSAID < tramadol < opioids
(morphine, oxycodone, hydromorphone).
- Requesting a lesser dose of the same medication IF
ORDERED.
- Requesting a less intrusive route of administration
if both routes are prescribed by the provider (PO <
IV).
12/09/24 20:50
Code Status As Directed
Resuscitation Status: Full Code
12/09/24 20:54
Tamsulosin [Flomax] 0.4 mg PO NOW STA
12/09/24 21:45
Acetaminophen [Tylenol] 650 mg PO Q4HPRN PRN
Lactated Ringers [Lr] 1,000 ml IV 125 mls/hr
12/09/24 21:45
Iron Routine
Total Iron Binding Routine
STOOL [C difficile Antigen & Toxins] Urgent
ANUSHA Source: Feces/Stool
Specimen Description:
Activity As Directed
Activity Level: Ambulate
I/O [Intake/ Output] As Directed
Frequency: Per unit guidelines
Strain Urine As Directed
Vital Signs As Directed
Frequency: Per unit guidelines
Weight As Directed
Frequency: Daily
Oxygen Therapy [O2 Therapy] [RESP] Routine
Titrate/Wean O2 to maintain O2 sat greater than (%): 94
DX Deep Vein Thrombosis Video Routine
12/10/24 06:00
Basic Metabolic Panel IN AM
Complete Blood Count/No Diff IN AM
Magnesium IN AM
Phosphorus IN AM
Levothyroxine [Synthroid] 100 mcg PO DAILY @ 0600
12/10/24 08:00
Aspirin Low Dose EC [Aspir Low (Enteric Coated)] 81 mg PO BID
FOLic ACID [Folvite] 1 mg PO DAILY
Hydroxychloroquine [Plaquenil] 200 mg PO DAILY
Montelukast Sodium [Singulair] 10 mg PO DAILY
Nebivolol HCl [Bystolic] 10 mg PO DAILY
Rosuvastatin Calcium [Crestor] 5 mg PO DAILY
Sertraline HCl [Zoloft] 100 mg PO DAILY
Tamsulosin [Flomax] 0.4 mg PO DAILY
Abnormal Lab Results
12/09/24
16:09
WBC 16.4 H 10^3/uL
(4.8-10.8)
RBC 3.96 L 10^6/uL
(4.20-5.40)
Hgb 10.9 L g/dL
(12.0-16.0)
Hct 33.7 L %
(37.0-47.0)
MCHC 32.3 L g/dL
(33.0-37.0)
RDW 15.6 H %
(11.5-14.5)
MPV 10.9 H fL
(7.4-10.4)
Abs Immat Gran (auto) 0.1 H 10^3/uL
(0-0.05)
Absolute Neuts (auto) 13.2 H 10^3/uL
(1.4-6.5)
Absolute Monos (auto) 1.7 H 10^3/uL
(0.1-0.6)
Immature Gran % 0.6 H %
(0-0.5)
Neutrophils % 80.5 H %
(42.2-75.2)
Lymphocytes % 7.8 L %
(20.5-51.1)
Monocytes % 10.6 H %
(1.7-9.3)
Chloride 108 H mmol/L
(98-107)
Carbon Dioxide 18 L mmol/L
(22-30)
BUN 41 H mg/dl
(7-17)
Creatinine 2.0 H mg/dL
(0.6-1.0)
Glucose 115 H mg/dl
(70-99)
12/09/24 16:09
12/09/24 16:09
Vital Signs
Initial and Last Documented VS:
Initial Vital Signs
Temp Pulse Resp BP Pulse Ox
98.0 F 83 20 154/71 99
12/09/24 14:45 12/09/24 14:45 12/09/24 14:45 12/09/24 14:45 12/09/24 14:45
Last Documented Vital Signs
Temp Pulse Resp BP Pulse Ox
99.1 F 90 18 113/57 93
12/09/24 22:03 12/09/24 22:03 12/09/24 22:03 12/09/24 22:03 12/09/24 22:03
MDM/Problems Addressed
MDM/Problems Addressed:
Etiology of patient's symptoms is most likely gastroenteritis, potentially foodborne pathogen versus viral etiology. She does have leukocytosis however this could be stress response versus hypovolemia in addition to concern for infectious etiology.
She is also markedly hypovolemic with acute kidney injury. She is afebrile however given her persistence of symptoms and failed outpatient course of antibiotics, coupled with her immunosuppression on Plaquenil, will admit for further management
*Pulse Oximetry
SaO2: 99
Oxygen Mode of Delivery: Room air
Patient hypoxic: no
*Critical Care Note
Total Time (30-74mins, 75-104mins- exclusive of procedures): Not Applicable
ED Attending Note
-
Portions of this chart may have been created with voice recognition software.� Occasional wrong word or��sound alike� substitutions may have occurred due to the inherent limitations of voice recognition software.
Discharge Plan
Departure
Patient Disposition: Admit
Date of Disposition: 12/09/24
Time of Disposition: 19:55
Admit to: Med/Surg
Presentation/result/management discussed w/ accepting MD/DO: Hospitalist
Discharge Problem:
Gastroenteritis
Interventions
Interventions:
*Risk Screen - Suicide Last Done: 12/09/24 16:11
*General Assessment Last Done: 12/09/24 14:45
*Neglect/Abuse Screening Last Done: 12/09/24 16:11
*ED- Fall Risk Assessment Last Done: 12/09/24 16:10
*ED COVID-19 Vaccine History Last Done: 12/09/24 16:10
*Nursing Disposition Last Done: 12/09/24 21:16
BC-Xxbioz-Fbggthqhxz Assessment Last Done: 12/09/24 16:11
Discharge Date and Time
Discharge Date/Time: 12/09/24 21:37
[2024-12-09 16:20] LABS: Hematocrit 33.7 % (37.0-47.0); Hemoglobin 10.9 g/dL (12.0-16.0); Mean Corp Hgb Conc. 32.3 g/dL (33.0-37.0); Mean Corpuscular Volume 85.1 fL (81.0-99.0); Nucleated Red Blood Cells % 0 %; Platelet Count 170 10^3/uL (130-400); Red Cell Dist. Width 15.6 % (11.5-14.5)
[2024-12-09 16:39] LABS: ALT (SGPT) 13 U/L (0-35); AST (SGOT) 20 U/L (14-36); Albumin 3.9 g/dl (3.5-5.0); Alkaline Phosphatase 89 U/L (38-126); Blood Urea Nitrogen 41 mg/dl (7-17); Calcium 9.1 mg/dl (8.4-10.2); Carbon Dioxide 18 mmol/L (22-30); Chloride 108 mmol/L (98-107); Glucose 115 mg/dl (70-99); Lipase 227 U/L (23-300); Potassium 3.5 mmol/L (3.5-5.1); Sodium 138 mmol/L (135-145); Total Protein 6.8 g/dl (6.3-8.2); eGFR 27.04
[2024-12-09] MEDS: LR 1000 IV ×2 (17:20→22:37)
[2024-12-09 19:32] VITALS: BP 117/60
--- NOTE | 2024-12-09 20:54 | HPS.HSE ---
Family Physician
-
Family Physician: Jeferson Torres
Chief Complaint
-
Abd Pain, N/V/D
History of Present Illness
Patient is a 64y F with PMH significant for autoimmune disease, hypertension and ILD who presents to ED complaining of abdominal pain and N/V/D. Patient states that she had some LLQ pain 10 days ago and was seen by her PCP at that time. She was
started on Levaquin at that time for 'bowel inflammation'. Patient states she then developed N/V/D on Saturday. She reports crampy abdominal pain with nausea, non-bloody emesis, 'dry heaves' and watery, non-bloody stool. Patient notes that she
was incontinent of bowel and bladder with coughing, sneezing or dry heaving. Patient notes that she was unable to tolerate any PO intake throughout the weekend.
On Saturday she was able to tolerate some sips and has gradually been able to tolerate increasing amounts of liquids since that time. She has not had any further emesis for the past 2 days.
She continues to have 'smears' of soft / liquid stool several times per day - but no significant volume diarrhea.
LLQ abdominal pain is intermittent. No fevers / chills.
Medical History
Past Medical History
Past Medical History: Reports Other
Additional Past Medical History:
Lupus
Scleroderma
Sjogren Syndrome
Arthritis
GERD / PUD
Essential Hypertension
Hyperlipidemia
Hypothyroidism
Overactive Bladder
Past Surgical History: Reports Other
Additional Past Surgical History:
Benign Parotid Tumor
Cervical Fusion
Social History
Tobacco: Former Smoker (Quit a little over 15 years ago)
Alcohol: Occasional
Family History
Family History: Not pertinent
Allergies / Home Medications
Allergies reflects when Allergies were last updated in [facility].
Home Medications with original date entered in [facility]
Allergy/Medication List:
Allergies
Allergy/AdvReac Type Severity Reaction Status Date / Time
erythromycin base Allergy Intermediate Rash Verified 12/09/24 14:44
(Erythromycin Base)
Home Medications
levothyroxine 100 mcg tablet 100 mcg PO DAILY #30 tabs 02/02/11
aspirin 81 mg tablet,delayed release 81 mg PO BID Blood Clot Prevention/Tx 07/29/24
celecoxib 200 mg capsule 200 mg PO BID 07/29/24
chlorzoxazone 500 mg tablet 500 mg PO BIDPRN PRN muscle pain/stiffness/spasm 07/29/24
folic acid 0.8 mg capsule 0.8 mg PO DAILY Supplement 07/29/24
hydroxychloroquine 200 mg tablet 200 mg PO DAILY LUPUS 07/29/24
montelukast 10 mg tablet 10 mg PO DAILY Allergies 07/29/24
nebivolol 10 mg tablet 10 mg PO DAILY Blood Pressure 07/29/24
omeprazole 40 mg capsule,delayed release 40 mg PO DAILY Gastrointestinal Issue 07/29/24
rosuvastatin 5 mg tablet 5 mg PO DAILY High Cholesterol 07/29/24
sertraline 100 mg tablet 100 mg PO DAILY 07/29/24
tolterodine 4 mg capsule,extended release 24 hr 4 mg PO DAILY BLADDER 07/29/24
vitamin B complex 1 tab PO DAILY Supplement 07/29/24
hydrochlorothiazide 12.5 mg tablet 12.5 mg PO DAILY #30 tabs 07/31/24
acetaminophen 650 mg tablet,extended release 650 mg PO TID 12/09/24
albuterol sulfate 90 mcg/actuation aerosol inhaler (Ventolin HFA) 2 puff inhalation R Q6HPRN PRN shortness of breath or wheezing 12/09/24
dapagliflozin propanediol 10 mg tablet (Farxiga) 10 mg PO DAILY 12/09/24
levofloxacin 500 mg tablet 500 mg PO DAILY 12/09/24
valsartan 80 mg tablet 80 mg PO DAILY 12/09/24
Review of Systems
-
History Source: Patient
Constitutional: Reports Fatigue; Denies Fever or Chills
Respiratory: Denies Cough or Trouble Breathing
Cardiac: Denies Chest Pain or Palpitations
Abdomen/GI: Reports Abdominal Pain, Nausea, Vomiting, Diarrhea and Anorexia; Denies Bloody Stools or Black Stools
: Reports Incontinence; Denies Dysuria or Flank Pain
Musculoskeletal: Denies Joint Pain or Edema
Neurological: Denies Dizzy or Headache
Psych: Denies Depression or Anxiety
Physical Exam
Vital Signs
Vital Signs
Temp Pulse Resp BP Pulse Ox
98.0 F 78 16 117/60 97
12/09/24 14:45 12/09/24 19:32 12/09/24 20:00 12/09/24 19:32 12/09/24 19:32
Physical Exam
General: Other (64y F in no acute distress.)
HEENT: Moist mucous membranes and PERRLA
Respiratory: Clear; No Wheezes, Rales or Rhonchi
Cardiac: S1/S2 and Regular Rhythm; No Murmur
GI: Other (Soft, mild LLQ tenderness. Pos BS.)
Musculoskeletal: No Clubbing, No Cyanosis and No Edema
Neuro: AO x 3
Laboratory Results
-
12/09/24 16:09
12/09/24 16:09
Laboratory Results
Total Bilirubin 0.5 mg/dl (0.2-1.3) 12/09/24 16:09
AST 20 U/L (14-36) 12/09/24 16:09
ALT 13 U/L (0-35) 12/09/24 16:09
Alkaline Phosphatase 89 U/L (38-126) 12/09/24 16:09
Lipase 227 U/L (23-300) 12/09/24 16:09
Impression/Plan
-
A/P: Patient is a 64y F with PMH significant for lupus, ILD, Sjogren's and hypertension who presents to ED complaining of abdominal pain with N/V/D.
Gastroenteritis
- Admit for further evaluation and treatment.
- Symptoms have been steadily improving over the past 2 days. Patient tolerated lunch tray here in the ED without vomiting or pain.
- CT scan done in the ED this evening shows L ureteral stone but is otherwise unremarkable (see below).
- ? GI symptoms secondary to abx use as she did not develop N/V/D until after 5 days of Levaquin.
- Hold further abx,
- Check stool studies including CDiff given recent abx use.
- Supportive care including IVFs, antiemetics, etc.
- Diet as tolerated.
- Follow for any new / worsening symptoms.
JENNIFER
- SCr = 2.0 compared to baseline of 0.9.
- Likely prerenal due to volume losses / GI losses.
- IVFs as noted above.
- Hold valsartan.
- Follow for improvement in labs / lytes.
Leukocytosis
- Likely stress response given GI symptoms, volume losses, etc.
- Afebrile and not toxic appearing. GI symptoms are actually improving as noted above.
- Observe off of further abx for now.
- Follow temperature curve and monitor for changes in symptoms.
Left Ureteral Stone
- 3mm distal ureteral stone seen on CT this evening.
- Suspect this is the source of her LLQ / ongoing pain.
- No hydro, obstruction, etc.
- Tamsulosin, strain urine, IVFs, pain control, etc.
- Urology evaluation if unable to pass stone spontaneously.
SLE, Sjogren's
- Stable. Continue current med regimen.
Benign Hypertension
- Stable. Hold valsartan given JENNIFER.
- Continue other current med regimen with holding parameters.
Hypothyroidism
- Stable. Continue T4 replacement.
Anemia of Chronic Disease
- Stable. Hgb is at / near known baseline.
- Follow for changes.
DVT Prophylaxis: SCDs
Code Status: Full
[2024-12-09] MEDS: FLOMAX 0.4 MG PO (21:13)
[2024-12-09 22:02] VITALS: BMI 30.6
[2024-12-09 22:03] VITALS: BP 113/57
--- NOTE | 2024-12-09 22:30 | PTCARENOTE ---
Pt received from ED via stretcher. Ambulated to bed w/assist w/o incident. Oriented to surroundings and plan of care discussed. Admission and assessment completed. Full physical assessment documented (refer to worklist) Groin slightly pink, ?
MASD, to obtain miconazole powder. #20 RAC w/ LR at 125 mL/hr. Instructed to ring for assist when OOB, demonstrates understanding. Safe environment maintained. Call galvan w/in reach. Requests door closed to promote rest.
[2024-12-09] MEDS: TYLENOL 650 MG PO (22:35)
[2024-12-09 23:57] LABS: Total Iron Binding Capacity 270 ug/dl (265-497)
[2024-12-09 23:59] LABS: Iron < 20 ug/dl (37-170)
[2024-12-10] MEDS: MAALOX 30 ML PO (00:20)
[2024-12-10] MEDS: TYLENOL 650 MG PO ×5 (04:03→22:49)
[2024-12-10] MEDS: LR 1000 IV ×3 (05:27→22:08)
[2024-12-10] MEDS: SYNTHROID 100 MCG PO (05:27)
[2024-12-10 05:49] VITALS: BMI 30.6
[2024-12-10 06:47] LABS: Hematocrit 28.7 % (37.0-47.0); Hemoglobin 9.4 g/dL (12.0-16.0); Mean Corp Hgb Conc. 32.8 g/dL (33.0-37.0); Mean Corpuscular Volume 82.7 fL (81.0-99.0); Platelet Count 151 10^3/uL (130-400); Red Cell Dist. Width 15.6 % (11.5-14.5)
[2024-12-10 06:48] LABS: Blood Urea Nitrogen 34 mg/dl (7-17); Calcium 8.5 mg/dl (8.4-10.2); Carbon Dioxide 15 mmol/L (22-30); Chloride 112 mmol/L (98-107); Estimated Creatinine Clearance 35 ml/min; Glucose 126 mg/dl (70-99); Magnesium 2.0 mg/dl (1.6-2.3); Potassium 3.4 mmol/L (3.5-5.1); Sodium 136 mmol/L (135-145); eGFR 38.20
[2024-12-10 07:05] VITALS: BP 117/67
[2024-12-10] MEDS: FOLVITE 1 MG PO (08:54)
[2024-12-10] MEDS: ZOLOFT 100 MG PO (08:54)
[2024-12-10] MEDS: FLOMAX 0.4 MG PO (08:54)
[2024-12-10] MEDS: SINGULAIR 10 MG PO (08:54)
[2024-12-10] MEDS: CRESTOR 5 MG PO (08:55)
[2024-12-10] MEDS: KCL 40 MEQ PO (08:55)
[2024-12-10] MEDS: PLAQUENIL 200 MG PO (08:55)
[2024-12-10] MEDS: BYSTOLIC 10 MG PO (08:55)
[2024-12-10] MEDS: ASPIR LOW (ENTERIC COATED) 81 MG PO ×2 (08:55→20:45)
--- NOTE | 2024-12-10 11:22 | CM ---
CM following re: discharge planning.
Reviewed pt's chart, met with pt.
Pt is a 64 year old female, admitted with primary dx of Gastroenteritis. PMH significant for lupus, ILD, Sjogren's and hypertension.
Pt reports she lives with 2SH, 4 steps to enter, has 2 supportive children. Pt reports she has a cane and a walker and does not use them. No VN or SNF history. pt expressed her desire to return back home at discharge with family support.
PCP: Jeferson Torres
Pharmacy: [facility]
D/C plan: home with anticipated no needs. to transport at discharge.
CM will follow with discharge plan updates as hospitalization progresses
--- NOTE | 2024-12-10 11:57 | W.PN.HOSP.TC ---
Today's Communication/Plan
-
Monitor vital signs see plan
Continue with fluids
Monitor renal function
Monitor bowel movement
Replete potassium
Assessment / Plan
Assessment / Plan
General: Other (64y F in no acute distress.)
HEENT: Moist mucous membranes and PERRLA
Respiratory: Clear; No Wheezes, Rales or Rhonchi
Cardiac: S1/S2 and Regular Rhythm; No Murmur
GI: Other (Soft, mild LLQ tenderness. Pos BS.)
Musculoskeletal: No Edema
Neuro: AO x 3
Suspected gastroenteritis
- Symptoms have been steadily improving over the past 2 days.
- CT scan done in the ED this evening shows L ureteral stone but is otherwise unremarkable (see below).
Per patient Levaquin was started since her PCP was suspecting possible colitis and ordered outpatient CT scan. Her symptoms have now been improving
C. difficile negative, follow other stool studies
Hold further antibiotics, finished 10-day course of Levaquin
- Supportive care including IVFs, antiemetics, etc.
JENNIFER
- SCr = 2.0 compared to baseline of 0.9.
- Likely prerenal due to volume losses / GI losses.
- IVFs as noted above.
- Hold valsartan.
Creatinine now improving, 1.5 today
Hypokalemia
Replete
Leukocytosis
- Likely stress response given GI symptoms, volume losses, etc.
- Afebrile and not toxic appearing. GI symptoms are actually improving as noted above.
- Observe off of further abx for now.
- Follow temperature curve and monitor for changes in symptoms.
Left Ureteral Stone
- 3mm distal ureteral stone seen on CT this evening.
- Suspect this is the source of her LLQ / ongoing pain.
- No hydro, obstruction, etc.
- Tamsulosin, strain urine, IVFs, pain control, etc.
- Urology evaluation if unable to pass stone spontaneously.
SLE, Sjogren's
- Stable. Continue current med regimen.
Benign Hypertension
- Stable. Hold valsartan given JENNIFER.
- Continue other current med regimen with holding parameters.
Hypothyroidism
- Stable. Continue T4 replacement.
Anemia of Chronic Disease
- Stable. Hgb is at / near known baseline.
- Follow for changes.
DVT Prophylaxis: SCDs, heparin
Code Status: Full
Anticipated Discharge: Within 24 hours
Subjective/Interval History
-
Date of Service: December 10, 2024
Denies pain
Objective Data
-
Labs:
Laboratory Results
12/10/24
06:06
WBC 11.6 H
Hgb 9.4 L
Hct 28.7 L
Plt Count 151
Sodium 136
Potassium 3.4 L
Chloride 112 H
Carbon Dioxide 15 L
BUN 34 H
Creatinine 1.5 H
Glucose 126 H
Calcium 8.5
Vital Signs:
Vital Signs
Temp Pulse Resp BP Pulse Ox
98.3 F 74 18 117/67 97
12/10/24 07:05 12/10/24 08:55 12/10/24 07:05 12/10/24 08:55 12/10/24 07:05
I&O
12/09/24 12/10/24 12/11/24
06:59 06:59 06:59
Intake Total 480 / 480
Output Total 100 / 100
Balance 380 / 380
[2024-12-10 15:11] VITALS: BP 116/62
[2024-12-10 19:24] LABS: Hepatitis C Antibody Negative (Negative)
[2024-12-10] MEDS: ANESTHETIC LOZENGE 1 LOZENGE PO (20:45)
[2024-12-10] MEDS: OCEAN, SALINE MIST 1 SPRAYS NASAL (22:49)
[2024-12-10 23:00] VITALS: BP 109/62
[2024-12-11] MEDS: ANESTHETIC LOZENGE 1 LOZENGE PO ×5 (00:53→22:06)
[2024-12-11 05:07] VITALS: BMI 31.5
--- NOTE | 2024-12-11 05:38 | W.PN.UPDATE ---
Update Note
Progress Note Update
-Patient complained of sob. Denies chest pain.
-Crackle lung sound noted.
-PRN duo nebs
-Chest x-ray, cbc, bmp, mag, vbg, flu, covid and Pro BNP ordered.
-Per external report review history of chf will hold IVF for now.
-Chest x-ray result is pending.
[2024-12-11 05:43] VITALS: BP 122/60
[2024-12-11] MEDS: DUONEB 3 ML INH (05:52)
[2024-12-11 06:07] LABS: Venous Blood Gas B.E. -5.8 mmol/L (-4 to +4); Venous Blood Gas O2 Sat % 98.3 %
[2024-12-11 06:10] LABS: Venous Blood Gas O2 Therapy 2L
[2024-12-11] MEDS: LR IV (06:19)
[2024-12-11] MEDS: SYNTHROID 100 MCG PO (06:19)
[2024-12-11] MEDS: TYLENOL 650 MG PO ×4 (06:19→22:04)
[2024-12-11 06:20] LABS: Hematocrit 30.0 % (37.0-47.0); Hemoglobin 9.4 g/dL (12.0-16.0); Mean Corp Hgb Conc. 31.3 g/dL (33.0-37.0); Mean Corpuscular Volume 85.5 fL (81.0-99.0); Nucleated Red Blood Cells % 0 %; Platelet Count 153 10^3/uL (130-400); Red Cell Dist. Width 15.9 % (11.5-14.5)
[2024-12-11 06:37] LABS: COVID-19 Antigen Negative (Negative)
[2024-12-11 06:47] LABS: Blood Urea Nitrogen 19 mg/dl (7-17); Calcium 8.7 mg/dl (8.4-10.2); Carbon Dioxide 22 mmol/L (22-30); Chloride 113 mmol/L (98-107); Estimated Creatinine Clearance 49 ml/min; Glucose 102 mg/dl (70-99); Magnesium 1.8 mg/dl (1.6-2.3); Potassium 4.3 mmol/L (3.5-5.1); Sodium 139 mmol/L (135-145); eGFR 55.42
[2024-12-11 07:00] VITALS: BP 97/59
[2024-12-11] MEDS: ASPIR LOW (ENTERIC COATED) 81 MG PO ×2 (08:51→20:31)
[2024-12-11] MEDS: PLAQUENIL 200 MG PO (08:51)
[2024-12-11] MEDS: FLOMAX 0.4 MG PO (08:51)
[2024-12-11] MEDS: CRESTOR 5 MG PO (08:51)
[2024-12-11] MEDS: FOLVITE 1 MG PO (08:51)
[2024-12-11] MEDS: ZOLOFT 100 MG PO (08:51)
[2024-12-11] MEDS: SINGULAIR 10 MG PO (08:53)
[2024-12-11] MEDS: BYSTOLIC 10 MG PO (08:53)
[2024-12-11 11:04] VITALS: BP 112/83
--- NOTE | 2024-12-11 11:16 | CM ---
CM following re: discharge planning.
Reviewed pt's chart, met with pt.
Pt lives with 2SH, 4 steps to enter, has 2 supportive children. Pt reports she has a cane and a walker and does not use them. Pt expressed her desire to return back home at discharge with family support and pt stated she will not need after
are VN services.
IMM reviewed, placed on chart, pt has a copy.
D/C plan: home with anticipated no needs. to transport at discharge.
CM will follow with discharge plan updates as hospitalization progresses
--- NOTE | 2024-12-11 13:07 | W.PN.HOSP.TC ---
Today's Communication/Plan
-
Monitor vital signs
see plan
Hold further fluids
Monitor breathing status
Check Pro-Delfin
Assessment / Plan
Assessment / Plan
General: Other (64y F in no acute distress.)
HEENT: Moist mucous membranes and PERRLA
Respiratory: Clear; No Wheezes
Cardiac: S1/S2 and Regular Rhythm; No Murmur
GI: Other (Soft, mild LLQ tenderness. Pos BS.)
Musculoskeletal: No Edema
Neuro: AO x 3
Suspected gastroenteritis
- Symptoms have been steadily improving over the past 2 days[address]
- CT scan done in the ED this evening shows L ureteral stone but is otherwise unremarkable (see below).
Per patient Levaquin was started since her PCP was suspecting possible colitis and ordered outpatient CT scan. Her symptoms have now been improving
C. difficile negative, follow other stool studies
Hold further antibiotics, finished 10-day course of Levaquin
- Supportive care including IVFs, antiemetics, etc.
JENNIFER
- SCr = 2.0 compared to baseline of 0.9.
- Likely prerenal due to volume losses / GI losses.
- IVFs as noted above.
- Hold valsartan.
Creatinine now improving, 1.1 today
SOB overnight
CXR with questionable PNA; check procal
bnp elevated; does not appear overt volume overloaded
IVF stopped; monitor
Hypokalemia
resolved
Leukocytosis
- Likely stress response given GI symptoms, volume losses, etc.
- Afebrile and not toxic appearing. GI symptoms are actually improving as noted above.
- Observe off of further abx for now.
- Follow temperature curve and monitor for changes in symptoms.
Left Ureteral Stone
- 3mm distal ureteral stone seen on CT this evening.
- Suspect this is the source of her LLQ / ongoing pain.
- No hydro, obstruction, etc.
- Tamsulosin, strain urine, IVFs, pain control, etc.
- Urology evaluation if unable to pass stone spontaneously.
SLE, Sjogren's
- Stable. Continue current med regimen.
Benign Hypertension
- Stable. Hold valsartan given JENNIFER.
- Continue other current med regimen with holding parameters.
Hypothyroidism
- Stable. Continue T4 replacement.
Anemia of Chronic Disease
- Stable. Hgb is at / near known baseline.
- Follow for changes.
DVT Prophylaxis: SCDs, heparin
Code Status: Full
Anticipated Discharge: Within 24 hours
Subjective/Interval History
-
Date of Service: December 11, 2024
denies pain
Objective Data
-
Labs:
Laboratory Results
12/11/24 12/11/24
05:55 06:00
WBC 9.8
Hgb 9.4 L
Hct 30.0 L
Plt Count 153
Sodium 139 Cancelled
Potassium 4.3 D Cancelled
Chloride 113 H Cancelled
Carbon Dioxide 22 Cancelled
BUN 19 H Cancelled
Creatinine 1.1 H Cancelled
Glucose 102 H Cancelled
Calcium 8.7 Cancelled
Vital Signs:
Vital Signs
Temp Pulse Resp BP Pulse Ox
99.9 F 80 20 111/63 94
12/11/24 07:00 12/11/24 08:53 12/11/24 07:00 12/11/24 08:53 12/11/24 07:00
I&O
12/10/24 12/11/24 12/12/24
06:59 06:59 06:59
Intake Total 480 / 480 720 / 720
Output Total 100 / 100
Balance 380 / 380 720 / 720
[2024-12-11 14:57] LABS: Procalcitonin 1.38 ng/ml (0.0-0.25)
[2024-12-11 15:26] VITALS: BP 98/59
[2024-12-11 16:26] VITALS: BP 98/59
[2024-12-11] MEDS: VISBIOME 1 CAP PO (17:42)
[2024-12-11] MEDS: ROCEPHIN 1000 MG IV (17:42)
[2024-12-11] MEDS: STERILE WATER FOR INJECTION 10 ML IV (17:43)
[2024-12-11] MEDS: VIBRAMYCIN 100 MG PO (20:31)
[2024-12-11] MEDS: OCEAN, SALINE MIST 1 SPRAYS NASAL (20:39)
[2024-12-11 23:04] VITALS: BP 112/83
[2024-12-12] MEDS: SYNTHROID 100 MCG PO (05:15)
[2024-12-12] MEDS: TYLENOL 650 MG PO ×4 (05:15→20:26)
[2024-12-12] MEDS: DUONEB 3 ML INH ×3 (05:17→19:46)
[2024-12-12 06:00] VITALS: BMI 31.4
[2024-12-12 07:00] VITALS: BP 99/57
[2024-12-12 07:50] LABS: Hematocrit 29.6 % (37.0-47.0); Hemoglobin 9.8 g/dL (12.0-16.0); Mean Corp Hgb Conc. 33.1 g/dL (33.0-37.0); Mean Corpuscular Volume 82.0 fL (81.0-99.0); Nucleated Red Blood Cells % 0 %; Platelet Count 159 10^3/uL (130-400); Red Cell Dist. Width 15.7 % (11.5-14.5)
[2024-12-12 08:21] LABS: Blood Urea Nitrogen 13 mg/dl (7-17); Calcium 8.4 mg/dl (8.4-10.2); Carbon Dioxide 17 mmol/L (22-30); Chloride 113 mmol/L (98-107); Estimated Creatinine Clearance 53 ml/min; Glucose 121 mg/dl (70-99); Potassium 3.6 mmol/L (3.5-5.1); Sodium 137 mmol/L (135-145); eGFR > 60.00
[2024-12-12] MEDS: VISBIOME 1 CAP PO (08:51)
[2024-12-12] MEDS: FLOMAX 0.4 MG PO (08:52)
[2024-12-12] MEDS: ASPIR LOW (ENTERIC COATED) 81 MG PO ×2 (08:52→20:26)
[2024-12-12] MEDS: VIBRAMYCIN 100 MG PO ×2 (08:52→20:26)
[2024-12-12] MEDS: CRESTOR 5 MG PO (08:52)
[2024-12-12] MEDS: PLAQUENIL 200 MG PO (08:52)
[2024-12-12] MEDS: FOLVITE 1 MG PO (08:52)
[2024-12-12] MEDS: SINGULAIR 10 MG PO (08:52)
[2024-12-12] MEDS: BYSTOLIC 10 MG PO (08:52)
[2024-12-12] MEDS: ZOLOFT 100 MG PO (08:52)
[2024-12-12] MEDS: ANESTHETIC LOZENGE 1 LOZENGE PO (08:57)
--- NOTE | 2024-12-12 11:34 | W.PN.HOSP.TC ---
Today's Communication/Plan
-
Monitor vital signs see plan
Continue with antibiotics
Hopeful discharge tomorrow
Assessment / Plan
Assessment / Plan
General: Other (64y F in no acute distress.)
HEENT: Moist mucous membranes and PERRLA
Respiratory: Clear; No Wheezes
Cardiac: S1/S2 and Regular Rhythm; No Murmur
GI: Other (Soft, mild LLQ tenderness. Pos BS.)
Musculoskeletal: No Edema
Neuro: AO x 3
Suspected gastroenteritis
- Symptoms have been steadily improving over the past 2 days[address]
- CT scan done in the ED this evening shows L ureteral stone but is otherwise unremarkable (see below).
Per patient Levaquin was started since her PCP was suspecting possible colitis and ordered outpatient CT scan. Her symptoms have now been improving
C. difficile negative, follow other stool studies
Hold further antibiotics, finished 10-day course of Levaquin
JENNIFER
- SCr = 2.0 compared to baseline of 0.9.
- Likely prerenal due to volume losses / GI losses.
- Hold valsartan.
Creatinine now improving, 1 today
SOB overnight
CXR with pneumonia, started ceftriaxone and doxycycline
bnp elevated; does not appear overt volume overloaded
IVF stopped; monitor
Hypokalemia
resolved
Left Ureteral Stone
- 3mm distal ureteral stone seen on CT this evening.
- Suspect this is the source of her LLQ / ongoing pain.
- No hydro, obstruction, etc.
- Tamsulosin, strain urine, IVFs, pain control, etc.
- Urology evaluation if unable to pass stone spontaneously.
SLE, Sjogren's
- Stable. Continue current med regimen.
Benign Hypertension
- Stable. Hold valsartan given JENNIFER.
- Continue other current med regimen with holding parameters.
History of COPD
Breztri on discharge
duoneb prn
Hypothyroidism
- Stable. Continue T4 replacement.
Anemia of Chronic Disease
- Stable. Hgb is at / near known baseline.
- Follow for changes.
DVT Prophylaxis: SCDs, heparin
Code Status: Full
Anticipated Discharge: Within 24 hours
Subjective/Interval History
-
Date of Service: December 12, 2024
Denies pain
Objective Data
-
Labs:
Laboratory Results
12/12/24
07:01
WBC 10.0
Hgb 9.8 L
Hct 29.6 L
Plt Count 159
Sodium 137
Potassium 3.6
Chloride 113 H
Carbon Dioxide 17 L
BUN 13
Creatinine 1.0
Glucose 121 H
Calcium 8.4
Vital Signs:
Vital Signs
Temp Pulse Resp BP Pulse Ox
99.2 F 93 20 99/57 96
12/12/24 07:00 12/12/24 07:00 12/12/24 07:00 12/12/24 07:00 12/12/24 07:00
I&O
12/11/24 12/12/24 12/13/24
06:59 06:59 06:59
Intake Total 720 / 720 1560 / 1560
Balance 720 / 720 1560 / 1560
[2024-12-12] MEDS: PULMICORT 0.5 MG INH ×2 (11:46→19:46)
[2024-12-12 15:00] VITALS: BP 123/64
[2024-12-12] MEDS: ROCEPHIN 1000 MG IV (17:51)
[2024-12-12] MEDS: STERILE WATER FOR INJECTION 10 ML IV (17:51)
[2024-12-12 23:29] VITALS: BP 118/63
[2024-12-13] MEDS: ANESTHETIC LOZENGE 1 LOZENGE PO (03:14)
[2024-12-13] MEDS: TYLENOL 650 MG PO ×2 (03:15→08:27)
[2024-12-13 05:54] VITALS: BMI 31.5
[2024-12-13 06:21] LABS: Blood Urea Nitrogen 9 mg/dl (7-17); Calcium 8.6 mg/dl (8.4-10.2); Carbon Dioxide 18 mmol/L (22-30); Chloride 113 mmol/L (98-107); Estimated Creatinine Clearance 59 ml/min; Glucose 101 mg/dl (70-99); Potassium 3.9 mmol/L (3.5-5.1); Sodium 138 mmol/L (135-145); eGFR > 60.00
[2024-12-13 06:27] LABS: Hematocrit 28.6 % (37.0-47.0); Hemoglobin 9.2 g/dL (12.0-16.0); Mean Corp Hgb Conc. 32.2 g/dL (33.0-37.0); Mean Corpuscular Volume 83.9 fL (81.0-99.0); Nucleated Red Blood Cells % 0.2 %; Platelet Count 197 10^3/uL (130-400); Red Cell Dist. Width 15.7 % (11.5-14.5)
[2024-12-13] MEDS: SYNTHROID 100 MCG PO (06:37)
[2024-12-13 07:12] VITALS: BP 109/60
[2024-12-13] MEDS: DUONEB 3 ML INH (07:30)
[2024-12-13] MEDS: PULMICORT 0.5 MG INH (07:30)
[2024-12-13] MEDS: FOLVITE 1 MG PO (08:20)
[2024-12-13] MEDS: VISBIOME 1 CAP PO (08:20)
[2024-12-13] MEDS: ZOLOFT 100 MG PO (08:20)
[2024-12-13] MEDS: ASPIR LOW (ENTERIC COATED) 81 MG PO (08:20)
[2024-12-13] MEDS: FLOMAX 0.4 MG PO (08:20)
[2024-12-13] MEDS: SINGULAIR 10 MG PO (08:20)
[2024-12-13] MEDS: BYSTOLIC 10 MG PO (08:20)
[2024-12-13] MEDS: CRESTOR 5 MG PO (08:20)
[2024-12-13] MEDS: PLAQUENIL 200 MG PO (08:20)
[2024-12-13] MEDS: VIBRAMYCIN 100 MG PO (08:20)
--- NOTE | 2024-12-13 11:17 | W.PN.HOSP.TC ---
Today's Communication/Plan
-
Monitor vitals
See plan
Transition to p.o. antibiotic
Discharge today
Time of discharge 38 minutes
Assessment / Plan
Assessment / Plan
General: Other (64y F in no acute distress.)
HEENT: Moist mucous membranes and PERRLA
Respiratory: Clear; No Wheezes
Cardiac: S1/S2 and Regular Rhythm; No Murmur
GI: Other (Soft, mild LLQ tenderness. Pos BS.)
Musculoskeletal: No Edema
Neuro: AO x 3
Suspected gastroenteritis
- Symptoms have been steadily improving over the past 2 days.
- CT scan done in the ED this evening shows L ureteral stone but is otherwise unremarkable (see below).
Per patient Levaquin was started since her PCP was suspecting possible colitis and ordered outpatient CT scan. Her symptoms have now been improving
C. difficile negative, follow other stool studies
Hold further antibiotics, finished 10-day course of Levaquin
JENNIFER
- SCr = 2.0 compared to baseline of 0.9.
- Likely prerenal due to volume losses / GI losses.
- Hold valsartan. Can restart on discharge when blood pressure greater than 140/90
Creatinine now improving, 0.9 today. Resolved
Shortness of breath secondary to pneumonia
CXR with pneumonia, started ceftriaxone and doxycycline
bnp elevated; does not appear overt volume overloaded
IVF stopped; monitor
Now feeling better, has been on room air. Transition to p.o. antibiotics
Hypokalemia
resolved
Left Ureteral Stone
- 3mm distal ureteral stone seen on CT this evening.
- Suspect this is the source of her LLQ / ongoing pain.
- No hydro, obstruction, etc.
- Tamsulosin, strain urine, IVFs, pain control, etc.
- Urology evaluation if unable to pass stone spontaneously.
SLE, Sjogren's
- Stable. Continue current med regimen.
Benign Hypertension
- Stable. Hold valsartan given JENNIFER.
- Continue other current med regimen with holding parameters.
History of COPD
Breztri on discharge
duoneb prn
Hypothyroidism
- Stable. Continue T4 replacement.
Anemia of Chronic Disease
- Stable. Hgb is at / near known baseline.
- Follow for changes.
DVT Prophylaxis: SCDs, heparin
Code Status: Full
Anticipated Discharge: Today
Subjective/Interval History
-
Date of Service: December 13, 2024
Feeling better
Objective Data
-
Labs:
Laboratory Results
12/13/24
05:37
WBC 11.0 H
Hgb 9.2 L
Hct 28.6 L
Plt Count 197 D
Sodium 138
Potassium 3.9
Chloride 113 H
Carbon Dioxide 18 L
BUN 9
Creatinine 0.9
Glucose 101 H
Calcium 8.6
Vital Signs:
Vital Signs
Temp Pulse Resp BP Pulse Ox
98.2 F 72 14 109/60 97
12/13/24 07:12 12/13/24 07:32 12/13/24 07:32 12/13/24 08:20 12/13/24 07:32
I&O
12/12/24 12/13/24 12/14/24
06:59 06:59 06:59
Intake Total 1560 / 1560 1440 / 1440
Balance 1560 / 1560 1440 / 1440
--- NOTE | 2024-12-13 11:23 | W.DCSUMMARY ---
Discharge Summary
Discharge Data
Date of Admission: 12/09/24
Date of Discharge: 12/13/24
-
Pending Results: No
Hospital Course
64-year-old female with past medical history of SLE, Sjogren, hypertension, COPD, hypothyroidism, anemia of chronic disease came to the hospital with diarrhea and abdominal discomfort. CT scan was done which showed left ureteral nonobstructing
stone. Patient symptoms were likely thought was secondary to gastroenteritis. Patient also had acute kidney injury which continue to improve over time with fluids. Patient then developed shortness of breath and chest x-ray was consistent with
pneumonia. Patient was then started on antibiotics which was later transitioned to p.o. antibiotics prior to discharge. For her left nonobstructing ureteral stone she was instructed to follow-up with urology outpatient. Once her symptoms continue
to improve, she was then discharged home with instructions to follow-up with all her physicians outpatient.
Discharge Plan
-
Patient Disposition: Home (Routine Discharge)
Discharge Diagnosis/Procedures: Suspected gastroenteritis
Acute kidney injury
Pneumonia
Left ureteral stone
Condition: Fair
Diet: As tolerated
Activity: As tolerated
Driving Restrictions: As prior to admission
Bathing Restrictions: None
Others Tests: Chest x-ray with primary care provider in 3 to 4 weeks
Referrals:
Jeferson Torres DO [Family Provider, Family Practice] - in less than 1 week
Jan Rey MD [Active, Urology]
Prescriptions:
New
doxycycline hyclate 100 mg Capsule
100 mg PO Q12 Qty: 10 0RF
Lactobac/Bifidobac [Visbiome]
1 cap PO DAILY Qty: 10 0RF
cefdinir 300 mg capsule
300 mg PO BID Qty: 10 0RF
Breztri Aerosphere 160-9-4.8 mcg/actuation HFA aerosol inhaler
2 inh inhalation BID Qty: 10.7 0RF
Continued
levothyroxine 100 MCG tablet
100 mcg PO DAILY Qty: 30 0RF
celecoxib 200 mg Capsule
200 mg PO BID
chlorzoxazone 500 mg Tablet
500 mg PO BIDPRN PRN (Reason: muscle pain/stiffness/spasm)
tolterodine 4 mg Capsule,Extended Release 24hr
4 mg PO DAILY
sertraline 100 mg Tablet
100 mg PO DAILY
omeprazole 40 mg Capsule,Delayed Release(Dr/Ec)
40 mg PO DAILY
aspirin 81 mg Tablet,Delayed Release (Dr/Ec)
81 mg PO BID
vitamin B complex Tablet
1 tab PO DAILY
montelukast 10 mg Tablet
10 mg PO DAILY
rosuvastatin 5 mg Tablet
5 mg PO DAILY
folic acid 0.8 mg Capsule
0.8 mg PO DAILY
nebivolol 10 mg Tablet
10 mg PO DAILY
hydroxychloroquine 200 mg Tablet
200 mg PO DAILY
hydrochlorothiazide 12.5 mg Tablet
12.5 mg PO DAILY Qty: 30 0RF
acetaminophen 650 mg Tablet Extended Release
650 mg PO TID
dapagliflozin propanediol [Farxiga] 10 mg Tablet
10 mg PO DAILY
albuterol sulfate [Ventolin HFA] 90 mcg/actuation HFA aerosol inhaler
2 puff inhalation R Q6HPRN PRN (Reason: shortness of breath or wheezing)
Held
valsartan 80 mg Tablet
80 mg PO DAILY
Hold Instructions: Restart when blood pressure is greater than 140/90
Discontinued
levofloxacin 500 mg Tablet
500 mg PO DAILY
Rx Instructions:
for 10 days starting 11/30/24
Discharge Orders:
Discharge Patient (As Directed); Ordered 12/13/24
Ordered By: Hugo Velásquez
Discharge Date and Time
Discharge Date/Time: 12/13/24 13:04
Print Language: MAORI
[2024-12-13 12:20] VITALS: BP 108/66
== END 2024-12-13 13:04 | disposition home or self-care (01) | DRG 682 ==
LOC: 2 NORTH 21:13
PROVIDERS: Nurse Practitioner Family; Physician Assistant; ADMITTING PHYSICIAN Hospitalist; ATTENDING PHYSICIAN Internal Medicine; EMERGENCY PHYSICIAN Emergency Medicine; FAMILY PHYSICIAN Family Medicine Sports Medicine
DX: N17.9 Acute kidney failure, unspecified (principal); J18.9 Pneumonia, unspecified organism; N20.1 Calculus of ureter; J44.0 Chronic obstructive pulmonary disease with (acute) lower respiratory infection; D84.9 Immunodeficiency, unspecified; K52.9 Noninfective gastroenteritis and colitis, unspecified; M35.00 Sjogren syndrome, unspecified; F17.200 Nicotine dependence, unspecified, uncomplicated; I10 Essential (primary) hypertension; E03.9 Hypothyroidism, unspecified; D63.8 Anemia in other chronic diseases classified elsewhere; E78.5 Hyperlipidemia, unspecified; K21.9 Gastro-esophageal reflux disease without esophagitis; E87.6 Hypokalemia; M34.9 Systemic sclerosis, unspecified; Z79.890 Hormone replacement therapy; Z79.899 Other long term (current) drug therapy; Z11.52 Encounter for screening for COVID-19
CPT/HCPCS: 71045; 74176; 76705; 80048; 80053; 82805; 83540; 83550; 83690; 83735; 83880; 84100; 84145; 85025; 85027; 86803; 87045; 87046; 87324; 87427; 87449; 87502; 87811; 94640; 96360; 99285

== ENCOUNTER → 2025-01-08 14:09 | Outpatient (REF) | payer MEDICARE, OTHER, SELFPAY | LOC: RAD 14:09 | PROVIDERS: ATTENDING PHYSICIAN Family Medicine Sports Medicine | DX: J18.9 Pneumonia, unspecified organism (principal) | CPT/HCPCS: 71046 ==

== ENCOUNTER 2025-02-18 14:16 | Inpatient (IN) | payer MEDICARE, OTHER, SELFPAY ==
[2025-02-18] VITALS (14 sets, daily range): BP systolic 87–118; BP diastolic 51–71; BMI 31.3; BMI 29.6
[2025-02-18 11:25] LABS: Hematocrit 37.5 % (37.0-47.0); Hemoglobin 11.9 g/dL (12.0-16.0); Mean Corp Hgb Conc. 31.7 g/dL (33.0-37.0); Mean Corpuscular Volume 83.0 fL (81.0-99.0); Platelet Count 171 10^3/uL (130-400); Red Cell Dist. Width 15.1 % (11.5-14.5)
[2025-02-18 11:29] LABS: ALT (SGPT) 15 U/L (0-35); AST (SGOT) 26 U/L (14-36); Albumin 4.2 g/dl (3.5-5.0); Alkaline Phosphatase 99 U/L (38-126); Blood Urea Nitrogen 26 mg/dl (7-17); Calcium 9.0 mg/dl (8.4-10.2); Carbon Dioxide 23 mmol/L (22-30); Chloride 98 mmol/L (98-107); Glucose 133 mg/dl (70-99); Potassium 3.6 mmol/L (3.5-5.1); Sodium 129 mmol/L (135-145); Total Protein 7.5 g/dl (6.3-8.2); eGFR 37.96
[2025-02-18 11:44] LABS: Nucleated Red Blood Cells % 0 %
--- NOTE | 2025-02-18 12:05 | ED.GENMED ---
History of Present Illness
<Marivel Flowers PA-C - Last Filed: 02/19/25 09:34>
General
Chief Complaint: Weakness
Source: patient
Exam Limitations: none
Time Seen by Provider: 02/18/25 11:35
Nursing documentation reviewed up to this point in time: agreed with
History of Present Illness
History of Present Illness:
65-year-old female with history of hypertension, hyperlipidemia who presents to the emergency department with generalized weakness and myalgias since yesterday morning. Patient states she woke up yesterday morning feeling incredibly weak with full
body aches. She also reports urinary frequency. She describes generalized back discomfort however states that it does not seem to localize to one side. She has had 1 episode of diarrhea and 1 episode of vomiting however denies any focal abdominal
pain. Her thermometer is broken although she does report subjective fevers today.
She denies any chest pain. No shortness of breath. No productive cough. No sore throat or known sick contacts. No hematuria or dysuria.
Patient states that she has a past history of both kidney stones and frequent UTIs.
Patient is on Plaquenil for treatment of multiple autoimmune conditions.
Past History
<Marivel Flowers PA-C - Last Filed: 02/19/25 09:34>
Past History
ED Past Medical History: GERD, Hypothyroidism, Psychiatric (Anxiety), Other (Rheumatoid arthritis, Sj�gren syndrome, lupus) and Other (Irritable bowel syndrome, diverticulosis, neuropathy); Negative CAD
ED Past Surgical History: Tonsilectomy
Social History
Tobacco: Smoker
Personal:
Living: with family
Employment: Employed
Family History
Family History: Hypertension; Negative Early CAD
Review of Systems
<Marivel Flowers PA-C - Last Filed: 02/19/25 09:34>
Review of Systems
Allergies reviewed?: Yes
All Other Systems: ROS reviewed and negative except as documented in HPI and ROS
Phy Exam
<Mairvel Flowers PA-C - Last Filed: 02/19/25 09:34>
Physical Exam
Physical Exam:
Vitals: Mildly tachycardic on arrival. Normotensive
General: Patient is resting comfortably no distress
Skin: Warm and dry, no rashes or lesions
Head: Normocephalic, atraumatic
Eyes: Sclera nonicteric.
Throat: Protecting airway
Neck: Normal ROM, no cervical spine tenderness, no meningismus
Cardiac: Regular rate and rhythm, no murmurs.
Pulm: Normal respiratory effort. Lungs clear bilaterally
Abdomen: Abdomen soft nontender. No focal CVA tenderness.
Extremities: No evidence of cyanosis or edema. Strength 5/5 in bilateral upper lower extremities
Neuro: AAOx3. Grossly intact.
Psychiatric: Normal affect.
Course
<Marivel Flowers PA-C - Last Filed: 02/19/25 09:34>
Orders/Labs/Results
Orders:
Orders
02/18/25 Breakfast
NPO
Allow oral meds: Yes
Allow clear liquids: 4hrs prior to procedure
NPO with Ice Chips: Yes
Comment: may have unrestricted clear liquid up to 4 hrs prior to scheduled procedure
02/18/25 11:02
Electrocardiogram (*1) Urgent
Reason for Study: Abdominal Pain
EKG- Treatment ONCE
02/18/25 11:10
Complete Blood Count/With Diff Urgent
Comprehensive Metabolic Panel Urgent
02/18/25 11:40
Urinalysis Reflex To Culture Urgent
Date Specimen was Collected: 02/18/25
Time Specimen was Collected: 11:02
Urine Microscopic Reflex Cult Urgent
Urine Culture Urgent
ANUSHA Source: U
Specimen Description:
Date Specimen was Collected: 02/18/25
Time Specimen was Collected: 11:02
02/18/25 11:53
Acetaminophen [Tylenol] 1,000 mg PO NOW STA
02/18/25 11:54
Abdomen/Pelvis wo Contrast CT [CT Abd/pelvis Wo Iv Cont] Urgent
Comment:
Reason For Exam: urinary frequency, back pain
0.9% Sodium Chloride 1000 ml [Nss] 1,000 ml IV BOLUS
CR Chest - 2 Views Urgent
Comment:
Reason For Exam: Fever, cough
02/18/25 12:26
Lactic Acid Q4H
Comment: CANCEL 2nd LACTIC ACID IF 1st LACTIC ACID IS LESS THAN 2
Blood Culture Q30M
ANUSHA Source: Blood/Venous
Specimen Description:
02/18/25 13:12
Cefepime HCl [Maxipime] 2,000 mg IV NOW STA
02/18/25 13:15
Morphine Sulfate 4 mg IV NOW STA
02/18/25 13:25
Acetaminophen 1000MG/100Ml [Ofirmev] 1,000 mg in 100 ml .ROUTE .STK-MED
Acetaminophen 1000MG/100Ml [Ofirmev] 1,000 mg in 100 ml IV ONCE
Acetaminophen IV Indication:: Targeted Temp Management
02/18/25 13:27
Add On - Microbiology Urgent
Tests Added?: urine culture
02/18/25 13:53
Blood Culture Q30M
ANUSHA Source: Blood/Venous
Specimen Description:
02/18/25 13:54
Admit/Transfer Patient As Directed
Co-Sign Provider:
Level of Care: Inpatient admission
Assign to:: Telemetry
Physician / Group: htay
Diagnosis: Sepsis due to complicated UTI with post renal JENNIFER
Reason for Telemetry: Other
Other Reason for Telemetry: sepsis
Date to Stop Telemetry: 02/20/25
Time to Stop Telemetry: 11:00
Reason for Hospitalization: Sepsis due to complicated UTI with JENNFIER ( acute end organ dysfunction)
CT suggests 5 mm distal left ureteral calculus, with associated minimal left
hydroureter
Expected length of stay greater than two midnights?: Yes
ELOS- Estimated Length of Stay in days: 3
I certify the patient meets the requirements for IP care: Yes
02/18/25 13:56
Code Status As Directed
Resuscitation Status: Full Code
02/18/25 15:22
Acetaminophen [Tylenol/Feverall] 650 mg RECTAL Q4HPRN PRN
Acetaminophen [Tylenol] 650 mg PO Q4HPRN PRN
Albuterol [ProAIR HFA INHALER] 2 puff INH R Q6HPRN PRN shortness of breath or wheezing
Lactated Ringers [Lr] 1,000 ml IV 100 mls/hr
02/18/25 15:22
UROLOGY CONSULT Urgent
Consulting Provider: Harley Trejo
Was physician already notified: Yes
Comment: Sepsis due to complicated UTI , Lt ureteral stone
Activity As Directed
Activity Level: With Assistance
Intake/ Output As Directed
Frequency: Per unit guidelines
Pneumatic Compression Sleeves As Directed
Type: Knee high
Vital Signs As Directed
Frequency: Per unit guidelines
Weight As Directed
Frequency: Daily
DX Deep Vein Thrombosis Video Routine
02/18/25 16:23
Methocarbamol 500 mg PO BIDPRN PRN
02/18/25 20:00
Aspirin Low Dose EC [Aspir Low (Enteric Coated)] 81 mg PO BID
02/18/25 22:00
Cefepime HCl [Maxipime] 1,000 mg IV Q8H
02/19/25 05:23
Complete Blood Count/No Diff IN AM
Comprehensive Metabolic Panel IN AM
02/19/25 06:00
Levothyroxine [Synthroid] 100 mcg PO DAILY @ 0600
02/19/25 08:00
Montelukast Sodium [Singulair] 10 mg PO DAILY
Rosuvastatin Calcium [Crestor] 5 mg PO DAILY
Sertraline HCl [Zoloft] 100 mg PO DAILY
02/20/25 11:00
DC Protocol for Telemetry ONCE
Abnormal Lab Results
02/18/25 02/18/25
11:10 11:40
WBC 25.2 H 10^3/uL
(4.8-10.8)
Hgb 11.9 L g/dL
(12.0-16.0)
MCH 26.3 L pg
(27.0-31.0)
MCHC 31.7 L g/dL
(33.0-37.0)
RDW 15.1 H %
(11.5-14.5)
MPV 10.5 H fL
(7.4-10.4)
Abs Immat Gran (auto) 0.2 H 10^3/uL
(0-0.05)
Absolute Neuts (auto) 22.1 H 10^3/uL
(1.4-6.5)
Absolute Lymphs (auto) 0.9 L 10^3/uL
(1.2-3.4)
Absolute Monos (auto) 1.9 H 10^3/uL
(0.1-0.6)
Immature Gran % 0.6 H %
(0-0.5)
Neutrophils % 87.8 H %
(42.2-75.2)
Lymphocytes % 3.6 L %
(20.5-51.1)
Sodium 129 L mmol/L
(135-145)
BUN 26 H mg/dl
(7-17)
Creatinine 1.5 H mg/dL
(0.6-1.0)
Glucose 133 H mg/dl
(70-99)
Ur Occult Blood Reflex 2+ A
(Negative)
Leukocyte Esterase Rfl 3+ A
(Negative)
Urine WBC (Reflex) >100 A /HPF
(0-5)
Urine Bacteria (Reflex) Many A
(Negative)
Urine Glucose 4+ A
(Negative)
Urine Albumin (Reflex) 3+ A
(Neg - Trace)
02/18/25 11:10
02/18/25 11:10
Vital Signs
Initial and Last Documented VS:
Initial Vital Signs
Temp Pulse Resp BP Pulse Ox
100.1 F 104 20 105/71 97
02/18/25 10:41 02/18/25 10:41 02/18/25 10:41 02/18/25 10:41 02/18/25 10:41
Last Documented Vital Signs
Temp Pulse Resp BP Pulse Ox
97.4 F 67 17 123/64 94
02/19/25 07:00 02/19/25 07:00 02/19/25 07:00 02/19/25 07:00 02/19/25 08:56
<Tex Jarrell, DO - Last Filed: 02/18/25 13:18>
Orders/Labs/Results
Orders:
Orders
02/18/25 Breakfast
NPO
Allow oral meds: Yes
Allow clear liquids: 4hrs prior to procedure
NPO with Ice Chips: Yes
Comment: may have unrestricted clear liquid up to 4 hrs prior to scheduled procedure
02/18/25 11:02
Electrocardiogram (*1) Urgent
Reason for Study: Abdominal Pain
EKG- Treatment ONCE
02/18/25 11:10
Complete Blood Count/With Diff Urgent
Comprehensive Metabolic Panel Urgent
02/18/25 11:40
Urinalysis Reflex To Culture Urgent
Date Specimen was Collected: 02/18/25
Time Specimen was Collected: 11:02
Urine Microscopic Reflex Cult Urgent
Urine Culture Urgent
ANUSHA Source: U
Specimen Description:
Date Specimen was Collected: 02/18/25
Time Specimen was Collected: 11:02
02/18/25 11:53
Acetaminophen [Tylenol] 1,000 mg PO NOW STA
02/18/25 11:54
Abdomen/Pelvis wo Contrast CT [CT Abd/pelvis Wo Iv Cont] Urgent
Comment:
Reason For Exam: urinary frequency, back pain
0.9% Sodium Chloride 1000 ml [Nss] 1,000 ml IV BOLUS
CR Chest - 2 Views Urgent
Comment:
Reason For Exam: Fever, cough
02/18/25 12:26
Lactic Acid Q4H
Comment: CANCEL 2nd LACTIC ACID IF 1st LACTIC ACID IS LESS THAN 2
Blood Culture Q30M
ANUSHA Source: Blood/Venous
Specimen Description:
02/18/25 13:12
Cefepime HCl [Maxipime] 2,000 mg IV NOW STA
02/18/25 13:15
Morphine Sulfate 4 mg IV NOW STA
02/18/25 13:25
Acetaminophen 1000MG/100Ml [Ofirmev] 1,000 mg in 100 ml .ROUTE .STK-MED
Acetaminophen 1000MG/100Ml [Ofirmev] 1,000 mg in 100 ml IV ONCE
Acetaminophen IV Indication:: Targeted Temp Management
02/18/25 13:27
Add On - Microbiology Urgent
Tests Added?: urine culture
02/18/25 13:53
Blood Culture Q30M
ANUSHA Source: Blood/Venous
Specimen Description:
02/18/25 13:54
Admit/Transfer Patient As Directed
Co-Sign Provider:
Level of Care: Inpatient admission
Assign to:: Telemetry
Physician / Group: htay
Diagnosis: Sepsis due to complicated UTI with post renal JENNIFER
Reason for Telemetry: Other
Other Reason for Telemetry: sepsis
Date to Stop Telemetry: 02/20/25
Time to Stop Telemetry: 11:00
Reason for Hospitalization: Sepsis due to complicated UTI with JENNIFER ( acute end organ dysfunction)
CT suggests 5 mm distal left ureteral calculus, with associated minimal left
hydroureter
Expected length of stay greater than two midnights?: Yes
ELOS- Estimated Length of Stay in days: 3
I certify the patient meets the requirements for IP care: Yes
02/18/25 13:56
Code Status As Directed
Resuscitation Status: Full Code
02/18/25 15:22
Acetaminophen [Tylenol/Feverall] 650 mg RECTAL Q4HPRN PRN
Acetaminophen [Tylenol] 650 mg PO Q4HPRN PRN
Albuterol [ProAIR HFA INHALER] 2 puff INH R Q6HPRN PRN shortness of breath or wheezing
Lactated Ringers [Lr] 1,000 ml IV 100 mls/hr
02/18/25 15:22
UROLOGY CONSULT Urgent
Consulting Provider: Harley Trejo
Was physician already notified: Yes
Comment: Sepsis due to complicated UTI , Lt ureteral stone
Activity As Directed
Activity Level: With Assistance
Intake/ Output As Directed
Frequency: Per unit guidelines
Pneumatic Compression Sleeves As Directed
Type: Knee high
Vital Signs As Directed
Frequency: Per unit guidelines
Weight As Directed
Frequency: Daily
DX Deep Vein Thrombosis Video Routine
02/18/25 16:23
Methocarbamol 500 mg PO BIDPRN PRN
02/18/25 20:00
Aspirin Low Dose EC [Aspir Low (Enteric Coated)] 81 mg PO BID
02/18/25 22:00
Cefepime HCl [Maxipime] 1,000 mg IV Q8H
02/19/25 05:23
Complete Blood Count/No Diff IN AM
Comprehensive Metabolic Panel IN AM
02/19/25 06:00
Levothyroxine [Synthroid] 100 mcg PO DAILY @ 0600
02/19/25 08:00
Montelukast Sodium [Singulair] 10 mg PO DAILY
Rosuvastatin Calcium [Crestor] 5 mg PO DAILY
Sertraline HCl [Zoloft] 100 mg PO DAILY
02/20/25 11:00
DC Protocol for Telemetry ONCE
Abnormal Lab Results
02/18/25 02/18/25
11:10 11:40
WBC 25.2 H 10^3/uL
(4.8-10.8)
Hgb 11.9 L g/dL
(12.0-16.0)
MCH 26.3 L pg
(27.0-31.0)
MCHC 31.7 L g/dL
(33.0-37.0)
RDW 15.1 H %
(11.5-14.5)
MPV 10.5 H fL
(7.4-10.4)
Abs Immat Gran (auto) 0.2 H 10^3/uL
(0-0.05)
Absolute Neuts (auto) 22.1 H 10^3/uL
(1.4-6.5)
Absolute Lymphs (auto) 0.9 L 10^3/uL
(1.2-3.4)
Absolute Monos (auto) 1.9 H 10^3/uL
(0.1-0.6)
Immature Gran % 0.6 H %
(0-0.5)
Neutrophils % 87.8 H %
(42.2-75.2)
Lymphocytes % 3.6 L %
(20.5-51.1)
Sodium 129 L mmol/L
(135-145)
BUN 26 H mg/dl
(7-17)
Creatinine 1.5 H mg/dL
(0.6-1.0)
Glucose 133 H mg/dl
(70-99)
Ur Occult Blood Reflex 2+ A
(Negative)
Leukocyte Esterase Rfl 3+ A
(Negative)
Urine WBC (Reflex) >100 A /HPF
(0-5)
Urine Bacteria (Reflex) Many A
(Negative)
Urine Glucose 4+ A
(Negative)
Urine Albumin (Reflex) 3+ A
(Neg - Trace)
02/18/25 11:10
02/18/25 11:10
Vital Signs
Initial and Last Documented VS:
Initial Vital Signs
Temp Pulse Resp BP Pulse Ox
100.1 F 104 20 105/71 97
02/18/25 10:41 02/18/25 10:41 02/18/25 10:41 02/18/25 10:41 02/18/25 10:41
Last Documented Vital Signs
Temp Pulse Resp BP Pulse Ox
97.4 F 67 17 123/64 94
02/19/25 07:00 02/19/25 07:00 02/19/25 07:00 02/19/25 07:00 02/19/25 08:56
<Marivel Flowers PA-C - Last Filed: 02/19/25 09:34>
MDM/Problems Addressed
Differential Diagnosis Includes:
Not limited to: Urosepsis, obstructing kidney stone, pyelonephritis, viral illness, pneumonia, etc.
MDM/Problems Addressed:
65-year-old female presenting with two days of fever, chills, myalgia, and urinary frequency. No productive cough, chest pain, shortness of breath. No focal areas of abdominal pain. Patient borderline tachycardic and borderline febrile on arrival.
On exam, patient appears uncomfortable. Abdomen soft without areas of focal tenderness. Cardio/pulmonary assessment unremarkable.
Prior to my assessment � labs revealed significant leukocytosis of 25,000 as well as mild JENNIFER.
Patient has symptoms consistent with a possible UTI � UA is pending. Concern would be complicated UTI/pyelonephritis vs infected kidney stone.
Will perform septic work up, obtain non contrast CT scan abdomen/pelvis, chest x-ray, viral studies.
Will give IV fluids, Tylenol and monitor very closely.
Update: UA appears infected. Patient given [address] pending.
Update: CT shows 5 mm left distal ureteral stone. This was discussed with urology immediately, Dr. Trejo.
Patient meets sepsis criteria likely secondary to infect ureteral stone. She has remained normotensive in ED. Will admit to hospitalist with plan for NPO and OR tonight with urology.
Discussed plan with patient who is aware.
Chronic conditions affecting care:
HTN
Acute Exacerbation and/or Progression of Chronic Illness:
Urosepsis secondary to obstructing left distal ureteral calculi
<Marivel Flowers PA-C - Last Filed: 02/19/25 09:34>
*Radiology
Radiology exam reviewed: radiology read reviewed
*Pulse Oximetry
SaO2: 96
Oxygen Mode of Delivery: Room air
Patient hypoxic: no
*EKG
Interpreted by ED Provider?: Yes
EKG Intrepretation Date: 02/18/25
Interpretation: abnormal
Comparison EKG: changes noted
Heart Rate: 95
Rate: normal
Rhythm: sinus
[place]: normal axis
Interval: normal QT interval
QRS Pattern: normal QRS
Ischemia: T-wave inversion
*Managed Care Specialist Interpretation
Rate: normal
Interpretation: normal
Heart Rate: 96
Rhythm: sinus
*Critical Care Note
Total Time (30-74mins, 75-104mins- exclusive of procedures): Not Applicable
<Marivel Flowers PA-C - Last Filed: 02/19/25 09:34>
Patient Management
Discussion with other providers: Hospitalist and Fitter Hand (Case discussed w/ urology)
ED Attending Note
<Marivel Flowers PA-C - Last Filed: 02/19/25 09:34>
-
Portions of this chart may have been created with voice recognition software.� Occasional wrong word or��sound alike� substitutions may have occurred due to the inherent limitations of voice recognition software.
<Tex Jarrell DO - Last Filed: 02/18/25 13:18>
ED Attending Note
Patient seen and examined by attending physician: Yes
I performed the substantive portion of visit, reviewed & personally made and approve the management plan that is documented in note by myself or HEIDI.: Yes
ED Attending Note:
I have seen and evaluated the patient with a [id number] encounter. I have spoken to the advance practicer provider and involved in the medical history, the physical exam, medical decision making.
Evaluation and management service: agree unless noted differently below.
Results interpretation: agree unless noted differently below.
Focused HPI: 65-year-old female presenting with fevers and left flank pain. Patient is a prior history of UTIs and kidney stones
Physical exam: Dry mucous membranes. Left CVA tenderness. Skin warm
Medical Decision Making: Urinalysis concerning for UTI. No significant leukocytosis. CT confirms distal left ureteral stone with hydronephrosis. Given age, fever with suspected infected kidney stone, urology made aware. Patient started on
antibiotics. Will admit
Discharge Plan
Departure
Patient Disposition: Admit
Date of Disposition: 02/18/25
Time of Disposition: 13:20
Presentation/result/management discussed w/ accepting MD/DO: Hospitalist
Discharge Problem:
Sepsis, Calculus of distal left ureter, Acute UTI
Interventions
Interventions:
*Risk Screen - Suicide Last Done: 02/18/25 10:41
*General Assessment Last Done: 02/18/25 10:41
*Neglect/Abuse Screening Last Done: 02/18/25 10:41
*ED COVID-19 Vaccine History Last Done: 02/18/25 11:30
*ED Influenza Vaccine History Last Done: 02/18/25 11:30
*Nursing Disposition Last Done: 02/18/25 15:16
ED- Cardiac Assessment Last Done: 02/18/25 11:30
ED- Neurological Assessment Last Done: 02/18/25 11:30
ED- Pulmonary Assessment Last Done: 02/18/25 11:30
Discharge Date and Time
Discharge Date/Time: 02/18/25 15:16
[2025-02-18] MEDS: NSS 1000 IV (12:27)
[2025-02-18 13:02] LABS: Urine Character Cloudy (Clear)
[2025-02-18] MEDS: MORPHINE SULFATE 4 MG IV (13:25)
--- NOTE | 2025-02-18 13:32 | HPS.HSE ---
Addendum entered and electronically signed by Addison Rivas MD 02/18/25 14:11:
CORRECTION:
Benign Hypertension
- Stable.
- Not on any BP Rx since last admission per pateint
Original Note:
Family Physician
-
Family Physician: Jeferson Torres
Chief Complaint
-
weakness, muscle aches and urine frequency
History of Present Illness
65F HX known Lt ureteral stone, HX f both kidney stones and frequent UTIs, Rheumatoid arthritis, Sj�gren syndrome, lupus, chr plaquenil, hypertension, hyperlipidemia seen at ER :
- pw generalized weakness and myalgias since yesterday
- yesterday morning feeling incredibly weak with full body aches
- reports urinary frequency
- generalized back discomfort however states that it does not seem to localize to one side.
- had 1 episode of diarrhea and 1 episode of vomiting however denies any focal abdominal pain.
- she does report subjective fevers today.
ROS
- No hematuria or dysuria.
No sore throat or known sick contacts.
Medical History
Past Medical History
Past Medical History: Reports Other
Past Surgical History: Reports Orthopedic (Cervical Fusion) and Other (Benign Parotid Tumor removal )
Additional Past Surgical History:
Benign Parotid Tumor
Cervical Fusion
Social History
Tobacco: Former Smoker (Quit a little over 15 years ago)
Alcohol: Occasional
Family History
Family History: Not pertinent
Allergies / Home Medications
Allergies reflects when Allergies were last updated in [facility].
Home Medications with original date entered in [facility]
Allergy/Medication List:
Allergies
Allergy/AdvReac Type Severity Reaction Status Date / Time
erythromycin base Allergy Intermediate Rash Verified 12/09/24 14:44
(Erythromycin Base)
Home Medications
levothyroxine 100 mcg tablet 100 mcg PO DAILY #30 tabs 02/02/11
aspirin 81 mg tablet,delayed release 81 mg PO BID Blood Clot Prevention/Tx 07/29/24
celecoxib 200 mg capsule 200 mg PO BID 07/29/24
chlorzoxazone 500 mg tablet 500 mg PO BIDPRN PRN muscle pain/stiffness/spasm 07/29/24
folic acid 0.8 mg capsule 0.8 mg PO DAILY Supplement 07/29/24
hydroxychloroquine 200 mg tablet 200 mg PO DAILY LUPUS 07/29/24
montelukast 10 mg tablet 10 mg PO DAILY Allergies 07/29/24
nebivolol 10 mg tablet 10 mg PO DAILY Blood Pressure 07/29/24
omeprazole 40 mg capsule,delayed release 40 mg PO DAILY Gastrointestinal Issue 07/29/24
rosuvastatin 5 mg tablet 5 mg PO DAILY High Cholesterol 07/29/24
sertraline 100 mg tablet 100 mg PO DAILY 07/29/24
tolterodine 4 mg capsule,extended release 24 hr 4 mg PO DAILY BLADDER 07/29/24
vitamin B complex 1 tab PO DAILY Supplement 07/29/24
hydrochlorothiazide 12.5 mg tablet 12.5 mg PO DAILY #30 tabs 07/31/24
acetaminophen 650 mg tablet,extended release 650 mg PO TID 12/09/24
albuterol sulfate 90 mcg/actuation aerosol inhaler (Ventolin HFA) 2 puff inhalation R Q6HPRN PRN shortness of breath or wheezing 12/09/24
dapagliflozin propanediol 10 mg tablet (Farxiga) 10 mg PO DAILY 12/09/24
levofloxacin 500 mg tablet 500 mg PO DAILY 12/09/24
valsartan 80 mg tablet 80 mg PO DAILY 12/09/24
Review of Systems
-
Constitutional: Reports See HPI
EENT: Reports No Symptoms
Respiratory: Reports No Symptoms
Cardiac: Reports No Symptoms
Abdomen/GI: Reports See HPI
: Reports See HPI
Musculoskeletal: Reports No Symptoms
Skin: Reports No Symptoms
Neurological: Reports No Symptoms
Endocrine: Reports No Symptoms
Hematologic/Lymphatic: Reports No Symptoms
Psych: Reports No Symptoms
Physical Exam
Vital Signs
Vital Signs
Temp Pulse Resp BP Pulse Ox
100.1 F 97 17 118/70 96
02/18/25 10:41 02/18/25 11:15 02/18/25 11:02 02/18/25 11:02 02/18/25 12:07
Physical Exam
General: Fever (100.1) and Other (not toxic looking )
HEENT: Anicteric; No Moist mucous membranes (dry OM )
Respiratory: Clear
Cardiac: S1/S2, Regular Rhythm and Tachycardia
Breast: Deferred by me
GI: Soft, Non Tender and Non Distended
Rectal: Deferred by Provider
Genito-urinary: Costovertebral angle tend (Lt sided )
Skin: Warm
Neuro: AO x 3 and Nonfocal/grossly intact
Psych: Calm
Laboratory Results
-
02/18/25 11:10
02/18/25 11:10
Laboratory Results
Lactic Acid 1.9 mmol/L (0.7-2.0) 02/18/25 12:26
Total Bilirubin 1.3 mg/dl (0.2-1.3) 02/18/25 11:10
AST 26 U/L (14-36) 02/18/25 11:10
ALT 15 U/L (0-35) 02/18/25 11:10
Alkaline Phosphatase 99 U/L (38-126) 02/18/25 11:10
Data Reviewed
-
Diagnostic Radiology: Other (pending CXR )
CT Scan: Report Reviewed by me
Lab Data: Labs Reviewed by me
Old Records: Reviewed
Impression/Plan
-
Vital Signs
Temp Pulse Resp BP Pulse Ox
100.1 F 97 17 118/70 96
02/18/25 10:41 02/18/25 11:15 02/18/25 11:02 02/18/25 11:02 02/18/25 12:07
Laboratory Tests
12/13/24 02/18/25 02/18/25
05:37 11:10 12:26
WBC 25.2 H
Hgb 9.2 L 11.9 L
Plt Count 171
Sodium 138 129 L
Potassium 3.6
Chloride 98
Carbon Dioxide 23
BUN 26 H
Creatinine 0.9 1.5 H
eGFR > 60.00 37.96
Lactic Acid 1.9
Total Bilirubin 1.3
02/18/25
11:40
Urine Clarity Cloudy
Urine Nitrite (Reflex) Negative
Leukocyte Esterase Rfl 3+ A
Urine RBC 0-2
Urine WBC (Reflex) >100 A
Ur Squamous Epith Cells 11-15
Urine Bacteria (Reflex) Many A
Pending Covid
NEG Flu A & B
UCX and BC sent
Pending CXR
CT Abd/pelvis Wo Iv Cont
Remonstration of 5 mm distal left ureteral calculus, with associated minimal left hydroureter, progressed from prior.
Last hospitalist admission: 12/09/24 - 12/13/24
Discharge Diagnosis/Procedures:
Suspected gastroenteritis
Acute kidney injury
Pneumonia
ureteral stone
ASSESSMENT & PLAN
Sepsis due to complicated UTI with JENNIFER ( acute end organ dysfunction)
CT suggests 5 mm distal left ureteral calculus, with associated minimal left hydroureter
- HX Renal stone with frequent UTI
- N prior Micro data for POS UCX
- Significant UA for UTI
- At risk for complicated UTI
- JENNIFER suspect post renal: obstructive origins
- BCX and UCx sent
- Agree with IV CFP
- IV NS
- Trend LA
-Urology consulted - NPO and for OR tonight
Left Ureteral Stone as above
- 5mm distal ureteral stone
- Tamsulosin, strain urine, IVFs, pain control, etc.
SLE, Sjogren's
- Stable.
- Hold Plaquenil
Benign Hypertension
- Stable.
- Hold valsartan given JENNIFER.
- Continue other current med regimen with holding parameters.
History of COPD
- duoneb prn
Hypothyroidism
- Stable.
- Continue T4 replacement.
Anemia of Chronic Disease
DVT Prophylaxis: SCDs
Full code
IP TLM
[2025-02-18 13:45] LABS: Urine White Cell >100 /HPF (0-5)
[2025-02-18 13:46] LABS: Urine Red Blood Cell 0-2 /HPF (0-2)
[2025-02-18] MEDS: OFIRMEV 100 IV (13:48)
--- NOTE | 2025-02-18 13:48 | CONS.URO ---
Consultation
-
Date/Time Consultation Performed: 02/18/25, 1:40 PM
Performing Provider: Kai
Reason for Consultation: obstructing ureteral stone, ?urosepsis
Medical History
History of Present Illness
65F year-old female with history of hypertension, hyperlipidemia who presents to the emergency department with generalized weakness and myalgias since yesterday morning.
States she woke up feeling weak, also with generalized pain everywhere and UTI symptoms -- urinary frequency, urgency and incontinence. Also had chills/sweats, nausea and no emesis.
Hx of nephrolithiasis dating > 20 years ago, never needed surgery
In the ED, she is non-toxic appearing. Tmax 100.1F, other vitals stable.
WBC 25, Cr 1.5, lactate 1.9, Na 129
UA yellow, cloudy, 3+ LE, -nitrites, >100 WBCs, many bacteria
CT A/P without contrast reviewed by me showed 5 mm distal L ureteral stone and possible smaller 2-3 mm ureteral stone proximal to that stone, and with mild left hydronephrosis
Past Medical History
Past Medical History: HTN and Hypercholesterolemia
Allergies/Home Medications
Allergies
Allergy/AdvReac Type Severity Reaction Status Date / Time
erythromycin base Allergy Rash Verified 02/18/25 10:45
(Erythromycin Base)
Home Medications
�Medication �Instructions �Recorded �Confirmed �Type
aspirin 81 mg tablet,delayed 81 mg PO BID Blood Clot 07/29/24 02/18/25 History
release Prevention/Tx
celecoxib 200 mg capsule 200 mg PO BID mild Pain 07/29/24 02/18/25 History
chlorzoxazone 500 mg tablet 500 mg PO BIDPRN PRN muscle 07/29/24 02/18/25 History
pain/stiffness/spasm
folic acid 0.8 mg capsule 0.8 mg PO DAILY Supplement 07/29/24 02/18/25 History
hydroxychloroquine 200 mg tablet 200 mg PO DAILY LUPUS 07/29/24 02/18/25 History
montelukast 10 mg tablet 10 mg PO DAILY Allergies 07/29/24 02/18/25 History
omeprazole 40 mg capsule,delayed 40 mg PO DAILY Gastrointestinal 07/29/24 02/18/25 History
release Issue
rosuvastatin 5 mg tablet 5 mg PO DAILY High Cholesterol 07/29/24 02/18/25 History
sertraline 100 mg tablet 100 mg PO DAILY Depression 07/29/24 02/18/25 History
tolterodine 4 mg capsule,extended 4 mg PO DAILY Urinary Issue 07/29/24 02/18/25 History
release 24 hr
vitamin B complex 1 tab PO DAILY Supplement 07/29/24 02/18/25 History
acetaminophen 650 mg 650 mg PO BID mild Pain 12/09/24 02/18/25 History
tablet,extended release
albuterol sulfate 90 mcg/actuation 2 puff inhalation R Q6HPRN PRN 12/09/24 02/18/25 History
aerosol inhaler (Ventolin HFA) shortness of breath or wheezing
dapagliflozin propanediol 10 mg 10 mg PO DAILY Diabetes 12/09/24 02/18/25 History
tablet (Farxiga)
budesonide 160 mcg-glycopyr 9 2 inh inhalation R BID sob 02/18/25 02/18/25 History
mcg-formot 4.8 mcg/actuation HFA
inhaler (Breztri Aerosphere)
hydrochlorothiazide 12.5 mg tablet 12.5 mg PO DAILY Fluid 02/18/25 02/18/25 History
Retention/Swelling
levothyroxine 100 mcg tablet 100 mcg PO DAILY Thyroid 02/18/25 02/18/25 History
Physical Exam
Vital Signs
Vital Signs
Temp Pulse Resp BP Pulse Ox
100.1 F 97 17 118/70 96
02/18/25 10:41 02/18/25 11:15 02/18/25 11:02 02/18/25 11:02 02/18/25 12:07
Lab / Testing Results
Laboratory Results
02/18/25 11:10
02/18/25 11:10
Physical Exam
General: Well Developed, Well Nourished, No Apparent Distress and Comfortable
HEENT: Normocephalic
Respiratory: Clear
GI: Soft and Non Tender
Genito-urinary: No Costovertebral Tend
Skin: Warm and Dry
Assessment / Plan
-
65F with obstructing 5 mm distal L ureteral stone and possible smaller 2-3 mm ureteral stone proximal to that stone, and with mild left hydronephrosis, WBC 25, and low-grade fevers to 100.1F
Plan:
- Admit to hospitalist
- OR today for cysto, L ureteral stent, unlikely we will be able to treat her stone in the setting of active infection. Discussed with the patient that this will likely be a staged procedure, she is aware and agrees. Consent signed
- Continue cefepime
- F/u UCx
- NPO, IVF
- Pain and nausea control
[2025-02-18] MEDS: MAXIPIME 2000 MG IV (13:54)
--- NOTE | 2025-02-18 15:14 | CM ---
Chart reviewed and spoke with patient and Víctor at ED bedside
Lives in a 2SH with 4 OMARI
PLOF independent with ADLs and ambulation with cane. Drives
in active chemo tx fo Non-Hodgkin Lymphoma now going to [place] every 3 weeks
Pt and taking care of 89 yo KORIN who lives 2 houses down
KORIN has her own [employer] but they help with meals and others
One dtr in [place] and another dtr in [place]
DME cane walker
PCP Jeferson Torres
RX plan yes
Pharmacy [facility] on
hx of [facility]
no hx of SNF
DCP is home with HHC if needed
family can provide transportation at the time of DC
Cm will continue to follow up for any dcp needs
[2025-02-18] MEDS: LR 1000 IV (16:41)
--- NOTE | 2025-02-18 18:49 | W.PN.URO.CBU ---
Today's Communication / Plan
-
may remove candelaria in am, if stable advance diet
Assessment / Plan
-
stone manipulatede stented
Diagnosis
-
Date of Service: February 18, 2025
-
Patient Diagnosis:left uretral stone with sepsi
Post Op Day:
Subjective
-
feels well
Objective
-
Vital Signs
Temp Pulse Resp BP Pulse Ox
99.3 F 103 18 92/57 96
02/18/25 15:32 02/18/25 15:32 02/18/25 15:32 02/18/25 15:32 02/18/25 15:32
Intake and Output
02/17/25 02/18/25 02/19/25
06:59 06:59 06:59
Other:
Number of approximated MODERATE 2
amounts of urine
Laboratory Results
02/18/25 11:10
02/18/25 11:10
Review of Systems
-
Constitutional: Fatigue, Night Sweats and Chills
Physical Exam
-
General - well developed, well nourished, no acute distress
Chest - clear bilaterally
Abdomen - soft, non-tender, positive bowel sounds, no CVAT, no incisional pain or distention
Genitalia - normal
Rectal - normal
Skin - warm & dry with no rash
Neuro - AOx3, no motor deficits
Extremities - no clubbing, no cyanosis, no edema
Incision - clean, dry
Dressing - clean, dry, intact
Care Review
Data Reviewed
Discussed with: Hospitalist and Nursing
CT Scan: Image Pers Reviewed
--- NOTE | 2025-02-18 18:50 | W.SUR.POST ---
Surgical Immediate Post Op
Note
Pre Op Diagnosis: left distal stones with uti pyuria
Post Op Diagnosissame:
Procedure Performed: lcysto left uretral stone mamnipulation jj stent
Primary Surgeon: gabe
Secondary Surgeons:
Anesthesia: generall dr bojorquez
Estimated Blood Loss: 1
Fluids: nss
Drains/Shunts: 6 fr 24 cm jj stent
Specimens/Cultures: 0
Doppler/Duplex/Angio (Y/N):
Complications: 0
Operative Findings: hypotensive placed stent some pyutria flowed left candelaria to nmeasure i/os
[2025-02-18] MEDS: SYMBICORT 160/4.5 MCG INHALER INH (19:33)
[2025-02-18] MEDS: TYLENOL 650 MG PO (20:04)
[2025-02-18] MEDS: ASPIR LOW (ENTERIC COATED) 81 MG PO (20:05)
[2025-02-18] MEDS: MAXIPIME 1000 MG IV (20:05)
[2025-02-18] MEDS: STERILE WATER FOR INJECTION 10 ML IV (20:05)
[2025-02-19 01:54] VITALS: BP 168/80; BMI 34.7
[2025-02-19 05:49] LABS: Hematocrit 35.2 % (37.0-47.0); Hemoglobin 10.9 g/dL (12.0-16.0); Mean Corp Hgb Conc. 31.0 g/dL (33.0-37.0); Mean Corpuscular Volume 84.0 fL (81.0-99.0); Platelet Count 166 10^3/uL (130-400); Red Cell Dist. Width 15.2 % (11.5-14.5)
[2025-02-19] MEDS: SYNTHROID 100 MCG PO (05:58)
[2025-02-19] MEDS: MAXIPIME 1000 MG IV ×3 (05:58→20:36)
[2025-02-19] MEDS: STERILE WATER FOR INJECTION 10 ML IV ×3 (05:58→20:38)
[2025-02-19 06:09] VITALS: BMI 32.8
[2025-02-19 06:16] LABS: Calcium 8.6 mg/dl (8.4-10.2); Uric Acid 6.0 mg/dl (2.5-6.2)
[2025-02-19 06:23] LABS: ALT (SGPT) 12 U/L (0-35); AST (SGOT) 20 U/L (14-36); Albumin 3.5 g/dl (3.5-5.0); Alkaline Phosphatase 98 U/L (38-126); Blood Urea Nitrogen 26 mg/dl (7-17); Calcium 8.9 mg/dl (8.4-10.2); Carbon Dioxide 23 mmol/L (22-30); Chloride 107 mmol/L (98-107); Estimated Creatinine Clearance 45 ml/min; Glucose 152 mg/dl (70-99); Potassium 4.2 mmol/L (3.5-5.1); Sodium 135 mmol/L (135-145); Total Protein 6.5 g/dl (6.3-8.2); eGFR 49.61
[2025-02-19 07:00] VITALS: BP 123/64
[2025-02-19] MEDS: SYMBICORT 160/4.5 MCG INHALER 2 PUFF INH ×2 (07:30→18:04)
[2025-02-19] MEDS: SPIRIVA RESPIMAT 2.5 MCG 2 PUFF INH (07:30)
[2025-02-19] MEDS: ZOLOFT 100 MG PO (08:22)
[2025-02-19] MEDS: ASPIR LOW (ENTERIC COATED) 81 MG PO ×2 (08:22→20:37)
[2025-02-19] MEDS: CRESTOR 5 MG PO (08:22)
[2025-02-19] MEDS: SINGULAIR 10 MG PO (08:22)
[2025-02-19] MEDS: LR 1000 IV ×2 (08:24→20:19)
[2025-02-19] MEDS: TYLENOL 650 MG PO ×2 (10:10→16:32)
[2025-02-19 11:00] VITALS: BP 116/66
[2025-02-19] MEDS: LR IV (11:12)
--- NOTE | 2025-02-19 11:13 | W.PN.URO.CBU ---
Today's Communication / Plan
-
no gu changes
Assessment / Plan
-
stone manipulatede stented e coli in urine awat blood cx keep stent home whe stable and outpatient retirval stone 3- 5 weeks
Diagnosis
-
Date of Service: February 19, 2025
-
Patient Diagnosis:
Post Op Day:
Patient Diagnosis:left uretral stone with sepsi
Post Op Day:
Subjective
-
feeling better
Objective
-
Vital Signs
Temp Pulse Resp BP Pulse Ox
97.9 F 74 18 116/66 94
02/19/25 11:00 02/19/25 11:00 02/19/25 11:00 02/19/25 11:00 02/19/25 11:00
Intake and Output
02/18/25 02/19/25 02/20/25
06:59 06:59 06:59
Intake Total 315 / 315
Output Total 1250 / 1250
Balance -935 / -935
Intake:
Oral fluids 240 / 240
IV fluids (Total) 75 / 75
normosol 75 / 75
Output:
Urine, Delacruz 1250 / 1250
Other:
Number of approximated MODERATE 2
amounts of urine
Laboratory Results
02/19/25 05:23
02/19/25 05:23
Review of Systems
-
: Dysuria, Frequency and Urgency
Physical Exam
-
General - well developed, well nourished, no acute distress
Chest - clear bilaterally
Abdomen - soft, non-tender, positive bowel sounds, no CVAT, no incisional pain or distention
Genitalia - normal
Rectal - normal
Skin - warm & dry with no rash
Neuro - AOx3, no motor deficits
Extremities - no clubbing, no cyanosis, no edema
Incision - clean, dry
Dressing - clean, dry, intact
Counseling
-
no gu changes
Care Review
Data Reviewed
Discussed with: Nursing
--- NOTE | 2025-02-19 11:41 | W.PN.HOSP.TC ---
Today's Communication/Plan
-
IV fluids. IV antibiotics
Assessment / Plan
Assessment / Plan
Physical exam:
General: Acutely ill
HEENT: Normocephalic, Atraumatic and Moist Mucous Membranes
Respiratory: Clear to Auscultation; Negative Wheezes, Rales or Rhonchi
Cardiac: Regular Rhythm and S1/S2
GI: Soft, Nontender and Nondistended
Musculoskeletal: No Clubbing, No Cyanosis and No Edema
Neuro: Awake, Alert and Oriented, no neurological deficit
Psych: Calm
A/P:
Sepsis due to complicated UTI and endorgan damage with JENNIFER:
Continue IV fluid
Continue antibiotics, IV cefepime
Follow-up cultures
Appreciated urology consult
PT OT eval
Left ureteral stone:
Status post ureteral stent
History of SLE and Sjogren:
Holding Plaquenil in the setting of infection but can resume soon
Hypertension:
Hold antihypertensive due to JENNIEFR and sepsis
Hyperlipidemia:
Continue statin
COPD:
Continue bronchodilator
Hypothyroidism:
Continue thyroid replacement
DVT prophylaxis:
SCD
Add heparin SQ
CODE STATUS:
Full code
Total time spent on today's encounter was 52 minutes which included time spent in counseling the patient/family regarding diagnosis and treatment plan as listed above, goals of care, and symptom management. Case was discussed with nursing staff,
specialists, and care coordinators/case management. All labs and imaging personally reviewed by me. Remainder the time spent in detailed review of previous records, lab data, imaging, and other medical provider documentation.
Anticipated Discharge: 24 - 48 hours
Subjective/Interval History
-
Date of Service: February 19, 2025
Patient feels better overall, still have some flank discomfort. Afebrile
Objective Data
-
Labs:
Laboratory Results
02/19/25 02/19/25
05:23 05:23
WBC 13.1 H
Hgb 10.9 L
Hct 35.2 L
Plt Count 166
Sodium 135
Potassium 4.2
Chloride 107
Carbon Dioxide 23
BUN 26 H
Creatinine 1.2 H
Glucose 152 H
Calcium 8.9 8.6
Total Bilirubin 0.5
AST 20
ALT 12
Alkaline Phosphatase 98
Vital Signs:
Vital Signs
Temp Pulse Resp BP Pulse Ox
97.9 F 74 18 116/66 94
02/19/25 11:00 02/19/25 11:00 02/19/25 11:00 02/19/25 11:00 02/19/25 11:00
I&O
02/18/25 02/19/25 02/20/25
06:59 06:59 06:59
Intake Total 315 / 315
Output Total 1250 / 1250
Balance -935 / -935
[2025-02-19 15:00] VITALS: BP 133/71
--- NOTE | 2025-02-19 19:13 | PTCARENOTE ---
This nurse received orders from to remove candelaria. This nurse removed candelaria around 0930 AM. After this nurse removed the candelaria, pt. immediately asked to go to the bathroom. Pt. urinated 200ccs after removal of candelaria. Pt. with complaints of pain
with urination, notified. Pyridium STAT dose ordered and PRN q8 ordered.
[2025-02-19 19:47] VITALS: BP 123/69
[2025-02-19] MEDS: HEPARIN 5000 UNITS SC (20:37)
[2025-02-19 23:10] VITALS: BP 127/65
[2025-02-20] MEDS: TYLENOL 650 MG PO ×3 (00:50→22:29)
[2025-02-20 03:08] VITALS: BP 101/61
[2025-02-20] MEDS: SYNTHROID 100 MCG PO (05:50)
[2025-02-20] MEDS: MAXIPIME 1000 MG IV ×3 (05:50→22:26)
[2025-02-20] MEDS: STERILE WATER FOR INJECTION 10 ML IV ×3 (05:50→22:27)
[2025-02-20 06:14] VITALS: BMI 31.0
[2025-02-20] MEDS: SYMBICORT 160/4.5 MCG INHALER 2 PUFF INH ×2 (07:46→17:54)
[2025-02-20] MEDS: SPIRIVA RESPIMAT 2.5 MCG 2 PUFF INH (07:46)
[2025-02-20] MEDS: ASPIR LOW (ENTERIC COATED) 81 MG PO ×2 (07:51→22:26)
[2025-02-20] MEDS: SINGULAIR 10 MG PO (07:51)
[2025-02-20] MEDS: CRESTOR 5 MG PO (07:51)
[2025-02-20] MEDS: ZOLOFT 100 MG PO (07:51)
[2025-02-20] MEDS: HEPARIN 5000 UNITS SC (07:51)
[2025-02-20] MEDS: METHOCARBAMOL 500 MG PO ×2 (07:57→15:24)
[2025-02-20 08:00] VITALS: BP 116/63
[2025-02-20 08:22] LABS: Hematocrit 33.6 % (37.0-47.0); Hemoglobin 10.4 g/dL (12.0-16.0); Mean Corp Hgb Conc. 31.0 g/dL (33.0-37.0); Mean Corpuscular Volume 81.6 fL (81.0-99.0); Nucleated Red Blood Cells % 0 %; Red Cell Dist. Width 15.3 % (11.5-14.5)
--- NOTE | 2025-02-20 09:37 | W.PN.HOSP.TC ---
Today's Communication/Plan
-
IV antibiotics. Urology reeval. sales program manager eval for discharge disposition
Assessment / Plan
Assessment / Plan
Physical exam:
General: Acutely ill
HEENT: Normocephalic, Atraumatic and Moist Mucous Membranes
Respiratory: Clear to Auscultation; Negative Wheezes, Rales or Rhonchi
Cardiac: Regular Rhythm and S1/S2
GI: Soft, Nontender and Nondistended
Musculoskeletal: No Clubbing, No Cyanosis and No Edema
Neuro: Awake, Alert and Oriented, no neurological deficit
Psych: Calm
A/P:
Sepsis due to complicated UTI and endorgan damage with JENNIFER:
Stop IV fluid
Continue antibiotics, IV cefepime. Will switch to oral antibiotics tomorrow
Follow-up cultures
Appreciated urology consult
PT OT eval
White blood cell count trending down
BMP pending
Discussed with cyanide case hardener in person today
Discussed with patient and at bedside about discharge disposition but she mentions with her urinary incontinence and flank discomfort she would not be able to go--> discussed with urology who will reevaluate her today. Discussed with case
documentation manager for discharge disposition as well.
Left ureteral stone:
Status post ureteral stent
Pain control
Urinary incontinence:
Suspect related to infection but other issues might be going on-urology reeval
History of SLE and Sjogren:
Holding Plaquenil in the setting of infection but can resume soon
Hypertension:
Hold antihypertensive due to JENNIFER and sepsis
Hyperlipidemia:
Continue statin
COPD:
Continue bronchodilator
Hypothyroidism:
Continue thyroid replacement
DVT prophylaxis:
Heparin SQ
CODE STATUS:
Full code
Total time spent on today's encounter was 52 minutes which included time spent in counseling the patient/family regarding diagnosis and treatment plan as listed above, goals of care, and symptom management. Case was discussed with nursing staff,
specialists, and care coordinators/case management. All labs and imaging personally reviewed by me. Remainder the time spent in detailed review of previous records, lab data, imaging, and other medical provider documentation. More than 50% of time
spent in counseling and coordination with patient, family, specialist (urologist), and cyanide case hardener.
Anticipated Discharge: Within 24 hours
Subjective/Interval History
-
Date of Service: February 20, 2025
Patient feels better overall but complaining of flank pain and also 'awful urinary incontinence'. Afebrile
Objective Data
-
Labs:
Laboratory Results
02/20/25 02/20/25
06:33 09:31
WBC 11.8 H
Hgb 10.4 L
Hct 33.6 L
Plt Count Pending
Sodium Cancelled Pending
Potassium Cancelled Pending
Chloride Cancelled Pending
Carbon Dioxide Cancelled Pending
BUN Cancelled Pending
Creatinine Cancelled Pending
Glucose Cancelled Pending
Calcium Cancelled Pending
Vital Signs:
Vital Signs
Temp Pulse Resp BP Pulse Ox
98 F 73 18 116/63 93
02/20/25 08:00 02/20/25 08:00 02/20/25 08:00 02/20/25 08:00 02/20/25 08:00
I&O
02/19/25 02/20/25 02/21/25
06:59 06:59 06:59
Intake Total 315 / 315 820 / 820
Output Total 1250 / 1250
Balance -935 / -935 820 / 820
[2025-02-20 10:40] LABS: Platelet Count 174 10^3/uL (130-400)
[2025-02-20 12:05] VITALS: BP 138/73
[2025-02-20 12:37] LABS: Blood Urea Nitrogen 22 mg/dl (7-17); Calcium 9.0 mg/dl (8.4-10.2); Carbon Dioxide 22 mmol/L (22-30); Chloride 107 mmol/L (98-107); Estimated Creatinine Clearance 58 ml/min; Glucose 129 mg/dl (70-99); Potassium 3.3 mmol/L (3.5-5.1); Sodium 136 mmol/L (135-145); eGFR > 60.00
--- NOTE | 2025-02-20 12:43 | W.PN.URO.CBU ---
Today's Communication / Plan
-
Continue antibiotic course for 10 day total, narrow to one of multiple PO options per culture
- Restart detrol LA for urgency and incontinence, though I advised her that her baseline leakage will probably remain worse while stent is in. Advised she use depends if needed
- Follow up with Dr. Trejo for removal of ureteral stones as outpatient procedure
- Stable for discharge from standpoint
Assessment / Plan
-
65F with sepsis, obstructing ureteral stone
s/p ureteral stent placement
e coli in urine
- Continue antibiotic course for 10 day total, narrow to one of multiple PO options per culture
- Restart detrol LA for urgency and incontinence, though I advised her that her baseline leakage will probably remain worse while stent is in. Advised she use depends if needed
- Follow up with Dr. Trejo for removal of ureteral stones as outpatient procedure
- Stable for discharge from standpoint
Diagnosis
-
Date of Service: February 20, 2025
-
Patient Diagnosis:left uretral stone with sepsis
s/p stent placement
Post Op Day:
Subjective
-
c/o significant urge incontinence
Objective
-
Vital Signs
Temp Pulse Resp BP Pulse Ox
97.8 F 91 19 138/73 95
02/20/25 12:05 02/20/25 12:05 02/20/25 12:05 02/20/25 12:05 02/20/25 12:05
Intake and Output
02/19/25 02/20/25 02/21/25
06:59 06:59 06:59
Intake Total 315 / 315 820 / 820
Output Total 1250 / 1250
Balance -935 / -935 820 / 820
Intake:
Oral fluids 240 / 240 820 / 820
IV fluids (Total) 75 / 75
normosol
Output:
Urine, Delacruz 1250 / 1250
Other:
How many times incontinent 1
MODERATE amount urine
Number of approximated MODERATE 2 2
amounts of urine
Laboratory Results
02/20/25 06:33
02/20/25 12:08
Physical Exam
-
General - well developed, well nourished, no acute distress
Chest - clear
[2025-02-20] MEDS: DETROL LA 4 MG PO (12:58)
[2025-02-20 13:05] VITALS: BP 122/66; PULSE 83; O2SAT 96
--- NOTE | 2025-02-20 13:28 | PTOTSP ---
Patient demonstrates independence with functional mobility and transfers. Would benefit from outpatient pelvic floor therapy if incontinence continues. Discussed with patient; she verbalized understanding.
No acute rehab needs at this time; will discharge.
[2025-02-20 15:41] VITALS: BP 128/69
[2025-02-20] MEDS: HEPARIN SC (22:20)
[2025-02-20 23:00] VITALS: BP 138/80
[2025-02-21] MEDS: SYNTHROID 100 MCG PO (05:21)
[2025-02-21] MEDS: MAXIPIME 1000 MG IV (05:22)
[2025-02-21] MEDS: STERILE WATER FOR INJECTION 10 ML IV (05:22)
[2025-02-21] MEDS: TYLENOL 650 MG PO (05:22)
[2025-02-21] MEDS: METHOCARBAMOL 500 MG PO (05:22)
[2025-02-21 06:00] VITALS: BMI 30.6
[2025-02-21] MEDS: HEPARIN 5000 UNITS SC (07:16)
[2025-02-21] MEDS: ZOLOFT 100 MG PO (07:16)
[2025-02-21] MEDS: CRESTOR 5 MG PO (07:16)
[2025-02-21] MEDS: SINGULAIR 10 MG PO (07:16)
[2025-02-21] MEDS: DETROL LA 4 MG PO (07:16)
[2025-02-21] MEDS: ASPIR LOW (ENTERIC COATED) 81 MG PO (07:16)
[2025-02-21 07:33] VITALS: BP 134/72
[2025-02-21] MEDS: SPIRIVA RESPIMAT 2.5 MCG 2 PUFF INH (07:33)
[2025-02-21] MEDS: SYMBICORT 160/4.5 MCG INHALER 2 PUFF INH (07:34)
[2025-02-21] MEDS: KEFLEX 500 MG PO (09:07)
[2025-02-21 10:56] LABS: Blood Urea Nitrogen 16 mg/dl (7-17); Calcium 9.0 mg/dl (8.4-10.2); Carbon Dioxide 23 mmol/L (22-30); Chloride 109 mmol/L (98-107); Estimated Creatinine Clearance 58 ml/min; Glucose 91 mg/dl (70-99); Potassium 3.8 mmol/L (3.5-5.1); Sodium 140 mmol/L (135-145); eGFR > 60.00
[2025-02-21 11:08] LABS: Hematocrit 33.0 % (37.0-47.0); Hemoglobin 10.1 g/dL (12.0-16.0); Mean Corp Hgb Conc. 30.6 g/dL (33.0-37.0); Mean Corpuscular Volume 83.1 fL (81.0-99.0); Nucleated Red Blood Cells % 0 %; Platelet Count 223 10^3/uL (130-400); Red Cell Dist. Width 15.1 % (11.5-14.5)
--- NOTE | 2025-02-21 13:09 | CM ---
patient seen at bedside
IMM explained & signed. In chart
PT/OT no needs
PLAN: Home, no needs
to transport
--- NOTE | 2025-02-21 13:24 | W.PN.URO.CBU ---
Today's Communication / Plan
-
Continue abx
- Follow up with Dr. Trejo for removal of ureteral stones as outpatient procedure
- Stable for discharge from standpoint
Assessment / Plan
-
65F with sepsis, obstructing ureteral stone
s/p ureteral stent placement
e coli in urine
- Continue antibiotic course for 10 day total, narrow to one of multiple PO options per culture
- Restart detrol LA for urgency and incontinence, though I advised her that her baseline leakage will probably remain worse while stent is in. Advised she use depends if needed
- Follow up with Dr. Trejo for removal of ureteral stones as outpatient procedure
- Stable for discharge from standpoint
Diagnosis
-
Date of Service: February 21, 2025
-
Patient Diagnosis:left uretral stone with sepsis
s/p stent placement
Post Op Day:
Subjective
-
incontinence better today
Objective
-
Vital Signs
Temp Pulse Resp BP Pulse Ox
97.5 F 63 16 134/72 95
02/21/25 07:33 02/21/25 07:37 02/21/25 07:37 02/21/25 07:33 02/21/25 07:37
Intake and Output
02/20/25 02/21/25 02/22/25
06:59 06:59 06:59
Intake Total 820 / 820 1979
Balance 820 / 820 1979
Intake:
Oral fluids 820 / 820 1979
Other:
How many times incontinent 1 2
MODERATE amount urine
Number of approximated MODERATE 2 7
amounts of urine
Laboratory Results
02/21/25 10:01
02/21/25 10:01
Physical Exam
-
General - well developed, well nourished, no acute distress
--- NOTE | 2025-02-21 14:04 | W.PN.HOSP.TC ---
Today's Communication/Plan
-
Discharge planning today
Assessment / Plan
Assessment / Plan
Physical exam:
General: No acute distress
HEENT: Normocephalic, Atraumatic and Moist Mucous Membranes
Respiratory: Clear to Auscultation; Negative Wheezes, Rales or Rhonchi
Cardiac: Regular Rhythm and S1/S2
GI: Soft, Nontender and Nondistended
Musculoskeletal: No Clubbing, No Cyanosis and No Edema
Neuro: Awake, Alert and Oriented, no neurological deficit
Psych: Calm
A/P:
Sepsis due to complicated UTI and endorgan damage with JENNIFER:
Stop IV fluid
Switch IV antibiotics to oral today
E. coli on urine culture
Appreciated urology consult and follow-up
PT OT eval
White blood cell count trended down to normal today
Discussed with home health care case manager in person today
Discussed with patient and at bedside and they feel more comfortable going home after discussion with urology and also feeling better.
Plan to discharge home today
Left ureteral stone:
Status post ureteral stent
Pain control
Urinary incontinence:
Urology resumed Detrol and also explained due to infection symptoms will linger but will improve.
History of SLE and Sjogren:
Can resume Plaquenil
Hypertension:
Can resume antihypertensive
Hyperlipidemia:
Continue statin
COPD:
Continue bronchodilator
Hypothyroidism:
Continue thyroid replacement
DVT prophylaxis:
Heparin SQ
CODE STATUS:
Full code
Total time spent on today's encounter was 35 minutes which included time spent in counseling the patient/family regarding diagnosis and treatment plan as listed above, goals of care, and symptom management. Case was discussed with nursing staff,
specialists, and care coordinators/case management. All labs and imaging personally reviewed by me. Remainder the time spent in detailed review of previous records, lab data, imaging, and other medical provider documentation. More than 50% of time
spent in counseling and coordination with patient, family, specialist (urologist), and home health care case manager.
Anticipated Discharge: Today
Subjective/Interval History
-
Date of Service: February 21, 2025
Patient doing much better today. Afebrile
Objective Data
-
Labs:
Laboratory Results
02/21/25
10:01
WBC 8.5
Hgb 10.1 L
Hct 33.0 L
Plt Count 223 D
Sodium 140
Potassium 3.8
Chloride 109 H
Carbon Dioxide 23
BUN 16
Creatinine 0.9
Glucose 91
Calcium 9.0
Vital Signs:
Vital Signs
Temp Pulse Resp BP Pulse Ox
97.5 F 63 16 134/72 95
02/21/25 07:33 02/21/25 07:37 02/21/25 07:37 02/21/25 07:33 02/21/25 07:37
I&O
02/20/25 02/21/25 02/22/25
06:59 06:59 06:59
Intake Total 820 / 820 1979
Balance 820 / 820 1979
--- NOTE | 2025-02-21 14:06 | W.DCSUMMARY ---
Discharge Summary
Discharge Data
Date of Admission: 02/18/25
Date of Discharge: 02/21/25
Total time spent discharging patient (in min): 35
-
Pending Results: No
Hospital Course
Patient is 65 years old female with multiple comorbidities including lupus, Sjogren syndrome, rheumatoid arthritis, frequent UTIs, hypertension, hyperlipidemia, presented to the hospital with sepsis due to UTI with end-organ damage with JENNIFER.
Patient received IV fluids and broad-spectrum IV antibiotics. Urology consulted. White blood cell count was as high of 25,000 and it came down to normal 8000 upon discharge. Urology took her to the OR on 02/18 and she had a ureteral stent placed.
Patient had some urinary incontinence after procedure and she was started back on her Detrol and she felt improved. Her urine cultures grew E. coli and antibiotics were switched to oral according to sensitivities. Patient participated with PT OT
and there was no needs identified upon discharge. She will be discharged in relatively stable condition today.
Discharge duration: 35 minutes
Discharge Plan
-
Patient Disposition: Home (Routine Discharge)
Discharge Diagnosis/Procedures: Sepsis due to urinary tract infection. Acute kidney injury. Urinary incontinence. Obstructive ureteral stone status post ureteral stent. History of lupus.
Diet: Low Cholesterol
Activity: As tolerated
Blood Work: Please PCP to order CBC, BMP within 1 week
Referrals:
Harley Trejo MD [Active, Urology]
Referral Note: you have a stent and the stone is still there expect frequency urgency blood in urine and left flank pain call Dr Trejo [phone] to set up next phase treatment
Jeferson Torres DO [Family Provider, Family Practice] - in less than 1 week
Prescriptions:
New
phenazopyridine 200 mg Tablet
200 mg PO Q8HPRN PRN (Reason: PAINFUL URINATION) 3 Days Qty: 10 0RF
cephalexin 500 mg Capsule
500 mg PO BID 10 Days Qty: 20 0RF
Continued
celecoxib 200 mg Capsule
200 mg PO BID
chlorzoxazone 500 mg Tablet
500 mg PO BIDPRN PRN (Reason: muscle pain/stiffness/spasm)
tolterodine 4 mg Capsule,Extended Release 24hr
4 mg PO DAILY
sertraline 100 mg Tablet
100 mg PO DAILY
omeprazole 40 mg Capsule,Delayed Release(Dr/Ec)
40 mg PO DAILY
aspirin 81 mg Tablet,Delayed Release (Dr/Ec)
81 mg PO BID
vitamin B complex Tablet
1 tab PO DAILY
montelukast 10 mg Tablet
10 mg PO DAILY
rosuvastatin 5 mg Tablet
5 mg PO DAILY
folic acid 0.8 mg Capsule
0.8 mg PO DAILY
hydroxychloroquine 200 mg Tablet
200 mg PO DAILY
acetaminophen 650 mg Tablet Extended Release
650 mg PO BID
dapagliflozin propanediol [Farxiga] 10 mg Tablet
10 mg PO DAILY
albuterol sulfate [Ventolin HFA] 90 mcg/actuation HFA aerosol inhaler
2 puff inhalation R Q6HPRN PRN (Reason: shortness of breath or wheezing)
levothyroxine 100 MCG tablet
100 mcg PO DAILY
hydrochlorothiazide 12.5 mg tablet
12.5 mg PO DAILY
Breztri Aerosphere 160-9-4.8 mcg/actuation HFA aerosol inhaler
2 inh inhalation R BID
Discharge Orders:
Discharge Patient (As Directed); Ordered 02/21/25
Ordered By: Mando Cabrera
Discharge Date and Time
Print Language: ARMENIAN
[2025-02-21 15:24] VITALS: BP 116/62
== END 2025-02-21 15:50 | disposition home or self-care (01) | DRG 854 ==
LOC: 3 WEST ACU 14:16
PROVIDERS: Physician Assistant; Specialist; ADMITTING PHYSICIAN Internal Medicine; ATTENDING PHYSICIAN Hospitalist; EMERGENCY PHYSICIAN Student in an Organized Health Care Education/Training Program; FAMILY PHYSICIAN Family Medicine Sports Medicine; OTHER PHYSICIAN Student in an Organized Health Care Education/Training Program
PROC: 0T778DZ Dilation of Left Ureter with Intraluminal Device, Via Natural or Artificial Opening Endoscopic (ICD-10-PCS; 2025-02-18)
DX: A41.9 Sepsis, unspecified organism (principal); N13.6 Pyonephrosis; N17.9 Acute kidney failure, unspecified; N20.1 Calculus of ureter; R32 Unspecified urinary incontinence; B96.20 Unspecified Escherichia coli [E. coli] as the cause of diseases classified elsewhere; I10 Essential (primary) hypertension; Z87.442 Personal history of urinary calculi; Z87.440 Personal history of urinary (tract) infections; M06.9 Rheumatoid arthritis, unspecified; Z79.890 Hormone replacement therapy; Z79.899 Other long term (current) drug therapy; Z79.82 Long term (current) use of aspirin; Z79.84 Long term (current) use of oral hypoglycemic drugs; J44.9 Chronic obstructive pulmonary disease, unspecified; E03.9 Hypothyroidism, unspecified; Z87.891 Personal history of nicotine dependence; D63.8 Anemia in other chronic diseases classified elsewhere; E11.40 Type 2 diabetes mellitus with diabetic neuropathy, unspecified; E78.00 Pure hypercholesterolemia, unspecified; F41.9 Anxiety disorder, unspecified; K21.9 Gastro-esophageal reflux disease without esophagitis; K58.9 Irritable bowel syndrome, unspecified; M35.00 Sjogren syndrome, unspecified; Z88.1 Allergy status to other antibiotic agents; R65.20 Severe sepsis without septic shock
CPT/HCPCS: 71046; 74018; 74176; 76000; 80048; 80053; 81003; 81015; 83605; 83970; 84550; 85025; 85027; 87040; 87077; 87086; 87186; 87502; 93005; 94640; 96361; 96374; 96375; 97162; 97166; 99285; C2617

== ENCOUNTER 2025-03-04 06:34 | Day surgery (SDC) | payer MEDICARE, OTHER, SELFPAY ==
--- NOTE | 2025-03-03 12:40 | PTCARENOTE ---
Patient took Farxiga and Celebrex 03/02, [place] at Dr. Trejo's office and Dr Flowers notified.
Patient is aware to hold meds until after surgery.
No additional requests at this time.
[2025-03-04] VITALS (10 sets, daily range): BP systolic 108–135; BP diastolic 57–75
[2025-03-04] MEDS: NORMOSOL-R/PLASMALYTE-A 1000 IV (09:47)
[2025-03-04 09:58] LABS: Urine Character Clear (Clear)
[2025-03-04 11:16] LABS: Urine Red Blood Cell 26-30 /HPF (0-2); Urine White Cell 30-40 /HPF (0-5)
== END 2025-03-04 12:28 | disposition home or self-care (01) ==
LOC: SDS 06:34
PROVIDERS: ATTENDING PHYSICIAN Specialist
DX: N20.1 Calculus of ureter (principal)
CPT/HCPCS: 52356; 74018; 76000; 81003; 81015; 82365; 87086; A4300; J1580